=== PATIENT | female | born 1970 | race Caucasian/White ===

== ENCOUNTER 2016-12-26 10:11 | Inpatient (IN) | payer OTHER ==
[~2016-12-26] VITALS: Ht 162.6 cm; Wt 104.3 kg
[~2016-12-26 10:11] MED LIST: DOXYCYCLINE HY100 M2 PO; IBUPROFEN800 M1 PO; PERCOCET 5-3251 EACH PO
--- NOTE | 2016-12-26 10:52 | ED GI/GU/ABDOMINAL COMPLAINT ---
History of Present Illness General Chief Complaint: Abdominal Pain/Flank Pain Stated Complaint: ABD PAIN, REDNESS AND SWELLING Source: patient, family Exam Limitations: no limitations Vital Signs & Intake/Output Vital Signs & Intake/Output Vital Signs Date Time Temp Pulse Resp B/P B/P Pulse O2 O2 Flow FiO2 Mean Ox Delivery Rate 12/27 1131 Room Air 12/27 1130 96 Room Air 12/27 0815 101 142/90 12/27 0800 Room Air 12/27 0720 98.0 101 20 142/90 97 Room Air 12/26 2314 96 Room Air 12/26 2234 98.1 107 20 158/98 96 Room Air 12/26 2157 Room Air 12/26 2048 97.2 94 18 142/93 95 Room Air Room Air 12/26 1700 99.1 99 22 138/72 100 Room Air 12/26 1500 100 22 132/70 99 12/26 1259 98.9 109 16 135/78 94 Room Air ED Intake and Output 12/27 0000 12/26 1200 Intake Total 240 Output Total Balance 240 Intake, Oral 240 Patient 230 lb 230 lb Weight Weight Reported by Patient Reported by Patient Measurement Method Allergies Coded Allergies: Boyd And Derivatives (Severe, ANAPHYLAXIS 09/17/15) ciprofloxacin (From CIPRO HC) (Severe, ANAPHYLAXIS 09/17/15) hydrocortisone (From CIPRO HC) (Severe, ANAPHYLAXIS 09/17/15) Macrolide Antibiotics (UNKNOWN 09/17/15) adhesive tape (BLISTERS 09/17/15) cefadroxil (UNKNOWN 09/17/15) clindamycin (HIVES 09/17/15) erythromycin base (UNKNOWN 09/17/15) penicillin G (UNKNOWN 09/17/15) pioglitazone (RASH 09/17/15) sitagliptin (From JANUVIA) (RASH 09/17/15) sulfamethoxazole (UNKNOWN 09/17/15) venom-honey bee (BEE VENOM (HONEY BEE)) (HIVES 09/17/15) morphine (NAUSEA 09/17/15) Reconcile Medications Doxycycline Hyclate 100 MG TABLET 1 TAB PO BID rash Fluconazole (Diflucan) 150 MG TABLET 1 TAB PO ONCE yeast infection Glipizide (Glipizide ER) 5 MG TAB.ER.24 2 TAB PO QPM DIABETES (Reported) Hydrocortisone 1 % CREAM..G. 1 MARIANA TOP BID rash apply to affected area(s) Lisinopril (Prinivil) 5 MG TABLET 1 TAB PO DAILY HEART (Reported) Metformin HCl (Metformin HCl ER) 500 MG TAB.ER.24H 2 TAB PO BID DIABETES ( Reported) Oxycodone HCl/Acetaminophen (Percocet 5-325 MG Tablet) 5 MG-325 MG TABLET 1 TAB PO BID PRN pain Saxagliptin (Onglyza) 5 MG TABLET 1 TAB PO QPM DIABETES (Reported) Simvastatin (Simvastatin*) 40 MG TABLET 1 TAB PO QPM CHOLESTEROL (Reported) Triage Note: 46 YO FEMALE TO ER C/O L SIDED OVARY PAIN AND PAIN TO CENTER OF LOWER ABD (NOTED WITH REDNESS TO ABD) PER PT, THE ABD IS PAINFUL TO TOUCH. +NAUSEA, DENIES V/D. Triage Nurses Notes Reviewed? yes LMP (ages 10-50): NOVEMBER Onset: Abrupt Duration: day(s): Timing: recent history Quality/Severity: aching, severe, throbbing Severity Numbers: 10 Location: left lower quadrant HPI: 46yo female with hx of endometreitis follow last year, left ovarian cyst, and DM presents to ED complaining of left lower abdominal pain since last night. Patient describes pain as constant, trobbing, aching, and severe at 10/ 10. She states this pain feels similar to pain she had with endometritis. She took Motrin last night without relief. She also complains of spreading rash across lower abdomen, worse since last night. She also c/o labia pruritis which feels similar to previous yeast infections with thick white vaginal discharge. Her LMP was November 14. LBM was yesterday and normal. She denies fevers, chills, dyspnea, diarrhea, constipation, dysuria. (KOMAL SAVAGE PA-C) ? N Is pt currently ? No (MELINA MALIN DO) Past History Travel History Traveled to [place] past 21 day No Medical History Any Pertinent Medical History? see below for history Neurological: NONE EENT: NONE Cardiovascular: hypertension Respiratory: asthma Gastrointestinal: NONE Hepatic: NONE Renal: NONE Musculoskeletal: NONE Psychiatric: NONE Endocrine: diabetes Surgical History Surgical History: Psychosocial History Who do you live with Spouse What is your primary language Divehi Tobacco Use: Current Daily Use Daily Tobacco Use Amount/Type: => 5 Cigarettes daily Family History Hx Contributory? No (KOMAL SAVAGE PA-C) Review of Systems Review of Systems Constitutional: Reports: no symptoms. EENTM: Reports: no symptoms. Respiratory: Reports: no symptoms. Cardiovascular: Reports: no symptoms. GI: Reports: see HPI. Genitourinary: Reports: see HPI. Musculoskeletal: Reports: no symptoms. Skin: Reports: see HPI. Neurological/Psychological: Reports: no symptoms. Hematologic/Endocrine: Reports: no symptoms. Immunologic/Allergic: Reports: no symptoms. All Other Systems: Reviewed and Negative (KOMAL SAVAGE PA-C) Physical Exam Physical Exam General Appearance: well developed/nourished, no apparent distress, alert, awake , anxious Head: atraumatic, normal appearance Eyes: Bilateral: normal appearance, EOMI. Ears, Nose, Throat, Mouth: hearing grossly normal Neck: normal inspection, supple, full range of motion Respiratory: normal breath sounds, no respiratory distress, lungs clear Cardiovascular: regular rate/rhythm, tachycardia Gastrointestinal: normal bowel sounds, soft, no organomegaly, tenderness LLQ Back: normal inspection, no cva tenderness bilaterally Extremities: normal range of motion Neurologic/Psych: awake, alert, oriented x 3 Skin: erythematous macular papular rash on lower abdomen, slight warmth to tough , blanches with pressure (KOMAL SAVAGE PA-C) Core Measures ACS in differential dx? No Severe Sepsis Present: No Septic Shock Present: No (MELINA MALIN DO) Progress Differential Diagnosis: appendicitis, bowel obstruction, diverticulitis, ovarian cyst, ovarian torsion, pancreatitis, CELLULITIS, PSORIASIS, VASCULITIS, TICK BORNE ILLNESS, NECROTIZING FASCIITIS Plan of Care: Orders Procedure Date/time Status Consistent Carbohydrate 3 12/27 B Active RT: Evaluation 12/27 1131 Active LOWER RESPIRATORY CULTURE 12/27 1000 Active CULTURE,URINE 12/27 0721 Active URINALYSIS 12/27 0721 Complete GLYCOSYLATED HGB 12/27 0600 Complete CBC WITHOUT DIFFERENTIAL 12/27 0600 Complete BASIC ELECTROLYTES PLUS BUN&CR 12/27 06 Complete THERAPIST ORDERS 12/27 UNK Complete Lab Add-on Test 12/27 UNK Active Heart Healthy Diet 12/26 D Complete Pathway - chart 12/26 2201 Active Teach/Educate 12/26 2146 Active Pain Treatment and Response 12/26 2146 Active Nutritional Intake, Monitor 12/26 2146 Active Isolation 12/26 2146 Active Patient Care Conference 06/25 2147 Active Activity/Ambulation 12/26 2147 Active LACTIC ACID 12/26 2039 Complete Patient Data 12/26 2002 Active Admit to inpatient 12/26 1950 Active FingerStick- Glucose 12/26 1739 Complete LACTIC ACID 12/26 1739 Complete CBC WITHOUT DIFFERENTIAL 12/26 1739 Complete Patient Data 12/26 1542 Active Vital Signs 12/26 1542 Active Code Status 12/26 1542 Active Intake & Output 12/26 1540 Active Add-on Test (ER Only) 12/26 1442 Active LYME TITRE 12/26 1039 Active FingerStick- Glucose 12/26 1035 Active AEROSOL CHG 12/26 UNK Complete TRC EVALUATION (GEN) 12/26 UNK Complete House Staff 12/26 UNK Active VTE Mechanical Prophylaxis 12/26 UNK Active Current Medications Sig/Keshia Start time Last Medication Dose Stop Time Status Admin Atorvastatin Calcium 20 MG 1700 12/27 1700 AC (Lipitor) Albuterol Sulfate 3 ML Q4P PRN 12/27 1130 AC 12/27 (Proventil) 1128 Enoxaparin Sodium 40 MG DAILY 12/27 1000 AC (Lovenox) Lisinopril 5 MG DAILY 12/27 1000 AC 12/27 (Prinivil) 0815 Insulin Aspart 0 TIDAC 12/27 0800 AC 12/27 (NovoLOG) 0817 Cefazolin Sodium 1,000 MG IQ8 12/27 0000 AC 12/27 (Kefzol-Ancef Inj) 0816 Guaifenesin 600 MG Q12 12/26 2231 AC 12/27 (Mucinex) 0814 Diphenhydramine HCl 50 MG Q6 PRN 12/26 2230 AC 12/26 (Benadryl) 2243 Doxycycline Hyclate 100 MG ONCE ONE 12/26 2215 CAN (Vibramycin) 12/26 2320 Sodium Chloride 100 ML (Normal Saline 0.9%) Sodium Chloride 1,000 ML Q20H 12/26 2215 AC 12/26 (Normal Saline 0.9%) 12/27 1814 2242 Insulin Detemir 10 UNITS BID 12/26 2201 AC 12/27 (Levemir) 0816 Acetaminophen 650 MG Q6P PRN 12/26 2200 AC (Tylenol) Acetaminophen 1,000 MG Q6P PRN 12/26 2200 AC 12/27 (Ofirmev) 0925 Ketorolac 15 MG Q6P PRN 12/26 2200 AC 12/27 Tromethamine 0815 (Toradol) Laboratory Tests 12/27/16 1000: Urine Color YEL, Urine Clarity CLEAR, Urine pH 6.0, Ur Specific [place] 1.020, Urine Protein NEG, Urine Ketones 40 H, Urine Nitrite NEG, Urine Bilirubin NEG, Urine Urobilinogen 0.2, Ur Leukocyte Esterase NEG, Ur Microscopic EXAM NOT REQUIRED, Urine Hemoglobin NEG, Urine Glucose >=1000 H 12/27/16 0710: Anion Gap 14, Estimated GFR > 60, BUN/Creatinine Ratio 24.0, Hemoglobin A1c 10.3 H, CBC w Diff NO MAN DIFF REQ, RBC 4.80, MCV 93.9, MCH 31.7 H, RDW 13.1, MPV 10.0, Gran % 89.6 H, Lymphocytes % 7.6 L, Monocytes % 2.8, Eosinophils % 0, Basophils % 0 L, Absolute Granulocytes 10.9 H, Absolute Lymphocytes 0.9 L, Absolute Monocytes 0.3, Absolute Eosinophils 0, Absolute Basophils 0, PUBS MCHC 33.7 12/26/16 2102: Lactic Acid 0.9 12/26/16 1900: Lactic Acid 1.1, CBC w Diff NO MAN DIFF REQ, RBC 4.72, MCV 92.8, MCH 31.6 H, RDW 13.0, MPV 9.6, Gran % 92.7 H, Lymphocytes % 5.1 L, Monocytes % 2.0, Eosinophils % 0.1, Basophils % 0.1, Absolute Granulocytes 11.1 H, Absolute Lymphocytes 0.6 L, Absolute Monocytes 0.2, Absolute Eosinophils 0, Absolute Basophils 0, PUBS MCHC 34.0 Microbiology 12/27 1000 URINE ROUT: Urine Culture - RECD 12/27 1000 LOWER RESP: Respiratory Culture - COLB 12/27 1000 LOWER RESP: Gram Stain - COLB 12/26 2254 LOWER RESP: Respiratory Culture - CAN Cancelled: NUMBER OF SQUAMOUS CELLS INDICATES POOR QUALITY SPECIMEN 12/26 2254 LOWER RESP: Gram Stain - CAN Cancelled: NUMBER OF SQUAMOUS CELLS INDICATES POOR QUALITY SPECIMEN Patient given IV toradol and states improvement in her abdominal pain. Transvaginal ultrasound and CT abdomen/pelvis both show hemorrhagic cyst in left ovary which may account for patient's abdominal pain. Upon further exam rash spreading further upward on patient's abdomen with some patches on chest now. Rash on upper abdomen and chest appears erythematous and lacy, nontender to palpation. Patient was discussed with Dr. Malin. Decision for ED obs after discussed with case management. Patient was started on IV doxy and IV solumedrol and lactic acid drawn. Surgery PA consulted patient at bedside, suspicion for necretizing faciitis is low given patient's vital signs, she is afebrile, her WBCs are WNL, however not safe to discharge patient at this time with spreading rash. Patient given oral diflucan for vaginal candidiasis. Decision to admit made by Dr. Malin and Dr. Hooker based on patient's continue symptoms despite IV doxycyline and IV solumedrol. (HUSSEIN CASAS,KOMAL) Diagnostic Imaging: Viewed by Me: CT Scan, Ultrasound. Discussed w/RAD: CT Scan, Ultrasound. Radiology Impression: PATIENT: KRYSTEN BACON PRESENT AGE: 46 PATIENT ACCOUNT NO: [id number] : 70 LOCATION: [facility] ORDERING PHYSICIAN: KOMAL SAVAGE PA-C SERVICE DATE: 12/26/16 EXAM TYPE: CAT - CT ABD & PELVIS W IV CONTRAST EXAMINATION: CT ABDOMEN AND PELVIS WITH CONTRAST CLINICAL INFORMATION: Left lower quadrant pain. COMPARISON: Previous CT scan January 2016 and pelvic ultrasound from earlier the same day. TECHNIQUE: Multidetector volumetric imaging was performed of the abdomen and pelvis before and after the IV administration of 95 mL of Optiray 320 intravenous contrast. Sagittal and coronal reformatted images were obtained on the technologist's workstation. DLP: 1005 mGy-cm. FINDINGS: LUNG BASES: The visualized lung bases are unremarkable. LIVER, GALLBLADDER, AND BILIARY TREE: The liver is normal in size, shape, and attenuation. No focal hepatic lesion or biliary ductal dilatation is present. The gallbladder has been removed. PANCREAS: Unremarkable. SPLEEN: Unremarkable. ADRENAL GLANDS: Unremarkable. KIDNEYS AND URETERS: There is a 2.7 x 3.2 cm cyst exophytic to the upper pole of the left kidney. The kidneys are otherwise unremarkable. BLADDER: Unremarkable. GASTROINTESTINAL TRACT: The small and large bowel are unremarkable. The appendix is not identified with certainty. No evidence of appendicitis is seen. ABDOMINAL WALL: There is a small umbilical hernia containing fat. LYMPH NODES: There are no enlarged lymph nodes seen. There is no ascites. VASCULAR: Unremarkable. PELVIC VISCERA: There is a heterogeneous predominantly high attenuation area in the left adnexa measuring 2 x 2.5 cm probably corresponding to hemorrhagic cyst seen on ultrasound. The uterus and adnexa are otherwise unremarkable. OSSEOUS STRUCTURES: There is spondylolysis, grade 1 spondylolisthesis and degenerative disc disease at L5-S1. IMPRESSION: There is a 2 x 2.5 cm heterogeneous high attenuation area in the left ovary likely corresponding to a complex or hemorrhagic left ovarian cyst as seen by ultrasound. No evidence of diverticulosis or diverticulitis. Left renal cyst. DICTATED BY: LEO BACON MD DATE/TIME DICTATED:12/26/161241 CENTRAL LAB TECHNICIAN:YANCI DATE/TIME TRANSCRIBED:12/26/161241 CONFIDENTIAL, DO NOT COPY WITHOUT APPROPRIATE AUTHORIZATION. <Electronically signed in Other Vendor System> SIGNED BY: LEO BACON MD 12/26/16 1432, PATIENT: KRYSTEN BACON PRESENT AGE: 46 PATIENT ACCOUNT NO: [id number] : 70 LOCATION: [facility] ORDERING PHYSICIAN: MELINA MALIN DO (TBS) SERVICE DATE: 12/26/16 EXAM TYPE: US - US-TRANSVAGINAL EXAMINATION: ULTRASOUND OF THE PELVIS CLINICAL INFORMATION: 46-year-old female presented with left lower quadrant pain. History of ovarian cyst. COMPARISON: CT of the abdomen and pelvis done on 01/16/2016. TECHNIQUE: Transabdominal and transvaginal pelvic ultrasound. FINDINGS: The uterus is normal in size and appearance, measuring 7.4 x 3.7 x 4.5 cm cm longitudinally, anteroposteriorly and transversely. The endometrial stripe thickness is normal, measuring 0.5 centimeters in thickness. The cervical length measures 2.8 cm. No focal myometrial mass is seen. The right ovary measures 3.2 x 1.5 x 2.5 cm, volume of 6.3 mL, shows a dominant solitary follicle measuring 1.5 x 1.1 x 1.4 cm. The left ovary measures 3.6 x 2.0 x 2.6 cm a volume of 9.8 mL. Superimposed well-circumscribed hypoechoic echogenicity is noted within the left ovary showing low level uniform smooth homogenous echoes measuring 2.4 x 1.4 x 2.3 cm, most consistent with hemorrhagic ovarian follicle. Vascular flow to both ovaries is well maintained. There is no free fluid present. A transvaginal study was performed in addition to the transabdominal study which did not yield an adequate examination of the uterus and ovaries due to superimposed distended gas-filled loops of bowel. IMPRESSION: 1. Sonographically unremarkable uterus and normal-appearing right ovary. 2. Likely hemorrhagic follicle involving the left ovary. The size of the left ovary appears relatively stable since 01/17/2016. 3. No free fluid. DICTATED BY: KYLIE UMANA MD DATE/ TIME DICTATED:12/26/161126 CENTRAL LAB TECHNICIAN:YANCI DATE/TIME TRANSCRIBED: 12/26/161126 CONFIDENTIAL, DO NOT COPY WITHOUT APPROPRIATE AUTHORIZATION. < Electronically signed in Other Vendor System> SIGNED BY: KYLIE UMANA MD 12/26/16 1202 (KOMAL SAVAGE PA-C) Differential Diagnosis: CELLULITIS, PSORIASIS, VASCULITIS, TICK BORNE ILLNESS, NECROTIZING FASCIITIS Initial ED EKG: none (MELINA MALIN DO) Departure Departure Disposition: STILL A PATIENT Condition: Stable Clinical Impression Primary Impression: Female pelvic pain Secondary Impressions: Hemorrhagic cyst of left ovary, Rash and nonspecific skin eruption, Yeast infection Referrals: SUSAN LISA MD (PCP/Family) Departure Forms: Customer Survey General Discharge Information Prescriptions: Current Visit Scripts Doxycycline Hyclate 1 TAB PO BID #20 TAB Hydrocortisone 1 MARIANA TOP BID #30 GM apply to affected area(s) Fluconazole (Diflucan) 1 TAB PO ONCE #2 TAB Oxycodone HCl/Acetaminophen (Percocet 5-325 MG Tablet) 1 TAB PO BID PRN pain #8 TAB (KOMAL SAVAGE PA-C) Observation Note Spoke With: MELINA MALIN DO Physician Advisor Notified: MELINA MALIN DO Place Patient In: ED Observation Rationale for Observation: My rational for observation is as follows [the patient needs IV fluids, IV insulin, IV antibiotics, reevaluation of the rash; perform serial exams, repeat CBCs and draw lactic acid level]. THE PATIENT WAS SIGNED OUT TO DR SALAZAR AT 7 PM PA/BANQUET CAPTAIN Co-Sign Statement Statement: ED Attending supervision documentation- [x] I saw and evaluated the patient. I have also reviewed all the pertinent lab results and diagnostic results. I agree with the findings and the plan of care as documented in the PA's/BANQUET CAPTAIN's documentation. [] I have reviewed the ED Record and agree with the PA's/BANQUET CAPTAIN's documentation. [] Additions or exceptions (if any) to the PAs/BANQUET CAPTAIN's note and plan are summarized below: [] (MELINA MALIN DO) Admission Note Spoke With: DRE HOOKER MD Documentation of Exam: Documentation of any treatments & extenuating circumstances including Concerns Regarding Discharge (functional status, medication knowledge or non-compliance, living conditions, etc.) that warrant an admission rather than observation: see below... pt with worsening rash, not better after steroids/abx... see below. pt merits iv abx, id and possibly derm consult. (MARIE GONZALEZ,ERIC Nolasco) Critical Care Note Critical Care Note Critical Care Time: 30-74 min (MARIE GONZALEZ,ERIC Nolasco) ED Attending Observation Initial Observation Note: I have seen and personally examined KRYSTEN BACON on 12/26/16 at 1616. I agree with the current emergency department documentation. The disposition (admission or discharge) is uncertain at this time, she needs a period of observation for the following reason(s): [The patient is being placed in observation and observed for progression of the rash and serial examinations and repeat CBC and monitoring of his temperature] The ED Nurse caring for this patient has been personally informed as to what the patient is being observed for. Observation Re-Evaluation: I have reevaluated KRYSTEN BACON on 12/26/16 at 1826. The physical findings that support the continued need to observe this patient include [the patient's rash is progressing upper abdomen. Surgical consultation was requested with Chalino Titus MD to exclude any possibility of necrotizing fasciitis. Repeat CBCs and lactic acid were drawn.]. (MELINA MALIN DO) Observation Re-Evaluation: I have reevaluated KRYSTEN BACON on 12/26/16 at 1948. The physical findings that support the continued need to observe this patient include .... Pt has a worsening rash after steroids and doxycycline, subjective fevers.... pt merits admission, id consult (given multiple drug allergies), consider derm consult. (MARIE GONZALEZ,ERIC Nolasco)
[2016-12-26 11:17] LABS: ABSOLUTE BASOPHIL COUNT 0 /CUMM (0.0-0.2); ABSOLUTE EOSINOPHIL COUNT 0.1 /CUMM (0.0-0.7); ABSOLUTE GRANULOCYTE CT 7.6 /CUMM (1.4-6.5); ABSOLUTE MONOCYTE COUNT 0.6 /CUMM (0.10-0.60); BASOPHIL % 0.3 % (0.0-2.0); EOSINOPHIL % 0.7 % (0-5); GRANULOCYTE % 81.8 % (42.2-75.2); HEMATOCRIT 43.3 % (37-47); MEAN CORPUSCULAR HGB 31.6 PG (27.0-31.0); MEAN CORPUSCULAR HGB CONC 33.9 G/DL (33.0-37.0); MEAN CORPUSCULAR VOLUME 93.3 FL (81.0-99.0); MEAN PLATELET VOLUME 9.6 FL (7.4-10.4); PLATELET COUNT 168 /CUMM (130-400); RBC DISTRIBUTION WIDTH 13.5 % (11.5-14.5); RED BLOOD CELL CT 4.65 /CUMM (4.20-5.40); WHITE BLOOD CELL COUNT 9.4 /CUMM (4.8-10.8)
[2016-12-26] MEDS ORDERED: ONGLYZA5 M1 PO (11:52)
[2016-12-26] MEDS ORDERED: METFORMIN HCL500 M4 PO (11:52)
[2016-12-26] MEDS ORDERED: SIMVASTATIN40 M1 PO (11:53)
[2016-12-26] MEDS ORDERED: GLIPIZIDE ER5 M1 PO (11:54)
[2016-12-26] MEDS ORDERED: PRINIVIL5 M1 PO (11:54)
--- NOTE | 2016-12-26 12:02 | ULTRASOUND REPORT ---
EXAMINATION: ULTRASOUND OF THE PELVIS CLINICAL INFORMATION: 46-year-old female presented with left lower quadrant pain. History of ovarian cyst. COMPARISON: CT of the abdomen and pelvis done on 01/16/2016. TECHNIQUE: Transabdominal and transvaginal pelvic ultrasound. FINDINGS: The uterus is normal in size and appearance, measuring 7.4 x 3.7 x 4.5 cm cm longitudinally, anteroposteriorly and transversely. The endometrial stripe thickness is normal, measuring 0.5 centimeters in thickness. The cervical length measures 2.8 cm. No focal myometrial mass is seen. The right ovary measures 3.2 x 1.5 x 2.5 cm, volume of 6.3 mL, shows a dominant solitary follicle measuring 1.5 x 1.1 x 1.4 cm. The left ovary measures 3.6 x 2.0 x 2.6 cm a volume of 9.8 mL. Superimposed well-circumscribed hypoechoic echogenicity is noted within the left ovary showing low level uniform smooth homogenous echoes measuring 2.4 x 1.4 x 2.3 cm, most consistent with hemorrhagic ovarian follicle. Vascular flow to both ovaries is well maintained. There is no free fluid present. A transvaginal study was performed in addition to the transabdominal study which did not yield an adequate examination of the uterus and ovaries due to superimposed distended gas-filled loops of bowel. IMPRESSION: 1. Sonographically unremarkable uterus and normal-appearing right ovary. 2. Likely hemorrhagic follicle involving the left ovary. The size of the left ovary appears relatively stable since 01/17/2016. 3. No free fluid.
--- NOTE | 2016-12-26 14:32 | CT SCAN REPORT ---
EXAMINATION: CT ABDOMEN AND PELVIS WITH CONTRAST CLINICAL INFORMATION: Left lower quadrant pain. COMPARISON: Previous CT scan January 2016 and pelvic ultrasound from earlier the same day. TECHNIQUE: Multidetector volumetric imaging was performed of the abdomen and pelvis before and after the IV administration of 95 mL of Optiray 320 intravenous contrast. Sagittal and coronal reformatted images were obtained on the technologist's workstation. DLP: 1005 mGy-cm. FINDINGS: LUNG BASES: The visualized lung bases are unremarkable. LIVER, GALLBLADDER, AND BILIARY TREE: The liver is normal in size, shape, and attenuation. No focal hepatic lesion or biliary ductal dilatation is present. The gallbladder has been removed. PANCREAS: Unremarkable. SPLEEN: Unremarkable. ADRENAL GLANDS: Unremarkable. KIDNEYS AND URETERS: There is a 2.7 x 3.2 cm cyst exophytic to the upper pole of the left kidney. The kidneys are otherwise unremarkable. BLADDER: Unremarkable. GASTROINTESTINAL TRACT: The small and large bowel are unremarkable. The appendix is not identified with certainty. No evidence of appendicitis is seen. ABDOMINAL WALL: There is a small umbilical hernia containing fat. LYMPH NODES: There are no enlarged lymph nodes seen. There is no ascites. VASCULAR: Unremarkable. PELVIC VISCERA: There is a heterogeneous predominantly high attenuation area in the left adnexa measuring 2 x 2.5 cm probably corresponding to hemorrhagic cyst seen on ultrasound. The uterus and adnexa are otherwise unremarkable. OSSEOUS STRUCTURES: There is spondylolysis, grade 1 spondylolisthesis and degenerative disc disease at L5-S1. IMPRESSION: There is a 2 x 2.5 cm heterogeneous high attenuation area in the left ovary likely corresponding to a complex or hemorrhagic left ovarian cyst as seen by ultrasound. No evidence of diverticulosis or diverticulitis. Left renal cyst.
[2016-12-26] MEDS ORDERED: DOXYCYCLINE HY100 M4 PO (15:00)
[2016-12-26] MEDS ORDERED: PERCOCET 5-3251 EACH PO (15:00)
[2016-12-26] MEDS ORDERED: DIFLUCAN150 M1 PO (15:00)
[2016-12-26] MEDS ORDERED: HYDROCORTISO453.6 G1 TOP (15:00)
[2016-12-26 19:13] LABS: ABSOLUTE BASOPHIL COUNT 0 /CUMM (0.0-0.2); ABSOLUTE EOSINOPHIL COUNT 0 /CUMM (0.0-0.7); ABSOLUTE GRANULOCYTE CT 11.1 /CUMM (1.4-6.5); ABSOLUTE LYMPH COUNT 0.6 /CUMM (1.2-3.4); ABSOLUTE MONOCYTE COUNT 0.2 /CUMM (0.10-0.60); BASOPHIL % 0.1 % (0.0-2.0); EOSINOPHIL % 0.1 % (0-5); GRANULOCYTE % 92.7 % (42.2-75.2); HEMATOCRIT 43.8 % (37-47); MEAN CORPUSCULAR HGB 31.6 PG (27.0-31.0); MEAN CORPUSCULAR VOLUME 92.8 FL (81.0-99.0); MEAN PLATELET VOLUME 9.6 FL (7.4-10.4); PLATELET COUNT 161 /CUMM (130-400); RED BLOOD CELL CT 4.72 /CUMM (4.20-5.40)
--- NOTE | 2016-12-26 20:07 | History & Physical ---
AC BUSBY 12/26/162006: General Information and HPI MD Statement: I have seen and personally examined KRYSTEN BACON and documented this H& P. The patient is a 46 year old F who presented with a patient stated chief complaint of abdominal pain and rash Source of Information: patient Exam Limitations: no limitations History of Present Illness: 46 year old woman, current everyday smoker with Pmh significant for DM, recurrent breast infections usually treated with Doxycline, history left ovarian cyst, multiple allergies, psoriasis comes to ED for evaluation for Abdominal pain and rash. Around 8pm she started experiencing non radiating LLQ abdominal pain which was 10/10 and after administration of motrin decreased to 8/10. Was associated with nausea. Also around the same time she noticed a rash on her lower abdomen which during her ER stay was noted to spread upwards to mid chest. Rash was non pruritic and associated with burning. Endorses white vaginal discharge which started today as well. Denies shortness of breath, chest pain, palpitatations, vomiting, change in diet or detergent, excessive menstrual bleeding, reports spotting in between her periods. Of note which was done in January was complicated infection of the surgical site. She is followed by Dr. De La Cruz for her current left ovarian cyst and she has had prior removal of what she states was a 9 cm ovarian cyst in the left ovary. Her only change in her medications was Onglyza which she recently re-started 3 months ago after stopping for over a year ago during her . Allergies/Medications Allergies: Coded Allergies: Schuyler And Derivatives (Severe, ANAPHYLAXIS 09/17/15) ciprofloxacin (From CIPRO HC) (Severe, ANAPHYLAXIS 09/17/15) hydrocortisone (From CIPRO HC) (Severe, ANAPHYLAXIS 09/17/15) Macrolide Antibiotics (UNKNOWN 09/17/15) adhesive tape (BLISTERS 09/17/15) cefadroxil (UNKNOWN 09/17/15) clindamycin (HIVES 09/17/15) erythromycin base (UNKNOWN 09/17/15) penicillin G (UNKNOWN 09/17/15) pioglitazone (RASH 09/17/15) sitagliptin (From JANUVIA) (RASH 09/17/15) sulfamethoxazole (UNKNOWN 09/17/15) venom-honey bee (BEE VENOM (HONEY BEE)) (HIVES 09/17/15) morphine (NAUSEA 09/17/15) Home Med list Doxycycline Hyclate 100 MG TABLET 1 TAB PO BID rash Fluconazole (Diflucan) 150 MG TABLET 1 TAB PO ONCE yeast infection Glipizide (Glipizide ER) 5 MG TAB.ER.24 2 TAB PO QPM DIABETES (Reported) Hydrocortisone 1 % CREAM..G. 1 MARIANA TOP BID rash apply to affected area(s) Lisinopril (Prinivil) 5 MG TABLET 1 TAB PO DAILY HEART (Reported) Metformin HCl (Metformin HCl ER) 500 MG TAB.ER.24H 2 TAB PO BID DIABETES ( Reported) Oxycodone HCl/Acetaminophen (Percocet 5-325 MG Tablet) 5 MG-325 MG TABLET 1 TAB PO BID PRN pain Saxagliptin (Onglyza) 5 MG TABLET 1 TAB PO QPM DIABETES (Reported) Simvastatin (Simvastatin*) 40 MG TABLET 1 TAB PO QPM CHOLESTEROL (Reported) Compliance With Home Meds: GOOD Past History Travel History Traveled to [place] past 21 day No Medical History Blood Transfusion Hx: No Neurological: NONE EENT: NONE Cardiovascular: hypertension Respiratory: asthma Gastrointestinal: NONE Hepatic: NONE Renal: NONE Musculoskeletal: NONE Psychiatric: NONE Endocrine: diabetes Cancer(s): RT BREAST LUMPECTOMY HAND GLOVE CLEANER/Reproductive: OVARIAN CYSTS Surgical History Surgical History: , CYST REMOVAL Past Family/Social History Family History Relations & Conditions if any Relation not specified for: Diabetes mellitus in father Psychosocial History Where do you live? Home Who Do You Live With? spouse Services at Home: None Smoking Status: Current Everyday Smoker ETOH Use: denies use Functional Ability ADLs Independent: dressing, eating, toileting, bathing. Ambulation: independent IADLs Independent: shopping, housework, finances, food prep, telephone, transportation , medication admin. Review of Systems Review of Systems Constitutional: Denies: see HPI, chills, diaphoresis, fever, malaise, weakness, unexplained weight loss. Cardiovascular: Denies: chest pain, edema, orthopena, palpitations, peripheral edema, syncope. Respiratory: Denies: cough, hemoptysis, orthopnea, short of breath, sputum production, stridor, wheezing. GI: Reports: abdominal pain. Denies: bloating, constipation, diarrhea, distention, bowel incontinence, melena, nausea, bloody stool, changes in stool, vomiting, steatorrhea. Genitourinary: Denies: discharge, dysuria, frequency, hematuria, hesitation, nocturia, pain, urgency. Skin: Reports: rash. Exam & Diagnostic Data Last 24 Hrs of Vital Signs/I&O Vital Signs Date Time Temp Pulse Resp B/P B/P Pulse O2 O2 Flow FiO2 Mean Ox Delivery Rate 12/26 2314 96 Room Air 12/26 2234 98.1 107 20 158/98 96 Room Air 12/26 2157 Room Air 12/26 2048 97.2 94 18 142/93 95 Room Air Room Air 12/26 1700 99.1 99 22 138/72 100 Room Air 12/26 1500 100 22 132/70 99 12/26 1259 98.9 109 16 135/78 94 Room Air 12/26 1017 99.7 110 18 153/84 97 Room Air Intake & Output 12/27 0800 12/27 0000 12/26 1600 Intake Total 240 Output Total Balance 240 Intake, Oral 240 Patient 230 lb 230 lb Weight Weight Reported by Patient Reported by Patient Measurement Method Physical Exam General Appearance Alert, Oriented X3, Cooperative, Mild Distress Skin red, blanchable maculopapular rash extending over abdomen upto chest , psoriatic lesions on b/l lower extremities Neck Supple Cardiovascular Regular Rate, Normal S1, Normal S2 Lungs Clear to Auscultation, Normal Air Movement Abdomen Normal Bowel Sounds, tenderness to mild palpation, worse in LLQ with guarding Extremities No Edema Diagnostic Data Other Results US-TRANSVAGINAL FINDINGS: The uterus is normal in size and appearance, measuring 7.4 x 3.7 x 4.5 cm cm longitudinally, anteroposteriorly and transversely. The endometrial stripe thickness is normal, measuring 0.5 centimeters in thickness. The cervical length measures 2.8 cm. No focal myometrial mass is seen. The right ovary measures 3.2 x 1.5 x 2.5 cm, volume of 6.3 mL, shows a dominant solitary follicle measuring 1.5 x 1.1 x 1.4 cm. The left ovary measures 3.6 x 2.0 x 2.6 cm a volume of 9.8 mL. Superimposed well-circumscribed hypoechoic echogenicity is noted within the left ovary showing low level uniform smooth homogenous echoes measuring 2.4 x 1.4 x 2.3 cm, most consistent with hemorrhagic ovarian follicle. Vascular flow to both ovaries is well maintained. There is no free fluid present. A transvaginal study was performed in addition to the transabdominal study which did not yield an adequate examination of the uterus and ovaries due to superimposed distended gas-filled loops of bowel. IMPRESSION: 1. Sonographically unremarkable uterus and normal-appearing right ovary. 2. Likely hemorrhagic follicle involving the left ovary. The size of the left ovary appears relatively stable since 01/17/2016. 3. No free fluid. CT ABD & PELVIS W IV CONTRAST FINDINGS: LUNG BASES: The visualized lung bases are unremarkable. LIVER, GALLBLADDER, AND BILIARY TREE: The liver is normal in size, shape, and attenuation. No focal hepatic lesion or biliary ductal dilatation is present. The gallbladder has been removed. PANCREAS: Unremarkable. SPLEEN: Unremarkable. ADRENAL GLANDS: Unremarkable. KIDNEYS AND URETERS: There is a 2.7 x 3.2 cm cyst exophytic to the upper pole of the left kidney. The kidneys are otherwise unremarkable. BLADDER: Unremarkable. GASTROINTESTINAL TRACT: The small and large bowel are unremarkable. The appendix is not identified with certainty. No evidence of appendicitis is seen. ABDOMINAL WALL: There is a small umbilical hernia containing fat. LYMPH NODES: There are no enlarged lymph nodes seen. There is no ascites. VASCULAR: Unremarkable. PELVIC VISCERA: There is a heterogeneous predominantly high attenuation area in the left adnexa measuring 2 x 2.5 cm probably corresponding to hemorrhagic cyst seen on ultrasound. The uterus and adnexa are otherwise unremarkable. OSSEOUS STRUCTURES: There is spondylolysis, grade 1 spondylolisthesis and degenerative disc disease at L5-S1. IMPRESSION: There is a 2 x 2.5 cm heterogeneous high attenuation area in the left ovary likely corresponding to a complex or hemorrhagic left ovarian cyst as seen by ultrasound. No evidence of diverticulosis or diverticulitis. Left renal cyst. Assessment/Plan Assessment: 46 year old woman, current everyday smoker with Pmh significant for DM, recurrent breast infections usually treated with Doxycline, history left ovarian cyst, multiple allergies, psoriasis comes to ED for evaluation for Abdominal pain and rash. Labs significant for mildly elevated leukcocytosis, elevated serum glucose and glycosuria. CT ABD/pelvis pertinant for 2 x 2.5cm left hemorrhagic cyst confirming finding on Transvaginal US. ED course: received one dose of Doxycline, IV solumedrol and Diflucan. As Ranked By This Provider Problem List: 1. Hemorrhagic cyst of left ovary Assessment/Plan Called and spoke to Dr. Hylton the telephone exchange operator OBG/HAND GLOVE CLEANER who reviewed Imaging. Recomended to continue conservative management and follow up with Dr. De La Cruz upon discharge. Monitor for acute abdomen. 2. Rash and nonspecific skin eruption Assessment/Plan unclear etiology at this time, clinical examination not impressive for cellulitis, improvement noted after administration of IV solumedrol. Will continue with scheduled Benadryl 50mg q6, monitor progress Dermatologic consult to be placed in AM In view of her past history recurrent infections, pt is anxious not to be on Antibiotics will continue with cefazolin pending blood cultures 3. Diabetes mellitus type 2 Assessment/Plan accuchecks, Novolog SS hold oral hypoglycemics f/up HA1c continue lisinopril and statin Diabetic diet 4. DVT prophylaxis Assessment/Plan sc lovenox 5. Full code status Core Measures/Miscellaneous Acute Coronary Syndrome ACS Diagnosis: No Cerebrovascular Accident CVA/TIA Diagnosis: No Congestive Heart Failure CHF Diagnosis: No VTE (View Protocol) VTE Risk Factors: Age > [address] [facility] d/t: No contraindications No VTE Pharm Prophylaxis d/t: No contraindications VTE Diagnosis: No VTE Type: NONE VTE Confirmed by (Test): NONE Sepsis (View Protocol) Severe Sepsis Present: No Septic Shock Septic Shock Present: No Miscellaneous Documentation Attending Case Discussed With: MELINA MALIN DO Primary Care Physician: SUSAN LISA MD Patient sees these Specialists Dr. Ruddy De La Cruz Level of Patient Care: General Medicine MAX LYNN MD 12/27/16 0317: Resident Review Statement Resident Statement: examined this patient, discussed with internet marketing specialist, agreed with internet marketing specialist, discussed with family Other Findings: 46-year-old female with past medical history of psoriasis multiple drug and seasonal allergies, diabetes, hypertension and left ovarian cyst here with complains of sudden onset of severe, left-sided lower abdominal pain and a new painful red rash on her lower abdomen x 1 day and a copious clear-colored vaginal discharge and vaginal itching that started today. She endorses low- grade fevers, chills, and sweats. She reports that since ariving in the ER, the rash rapidly spread up across abdomen up to the middle of the breasts but became a little better after she was given IV steroids. She also asked that she has had chronic sinus and congestion for the past 3 months and now has a cough productive of white and yellow sputum for the last 5 days with associated wheezing without chest pain or shortness of breath. She had a section was complicated by an infection of the surgical site. She denies a hx of endometritis. Last year and reports that a large cyst was taken out of her left ovary prior to her last , and she currently has a cyst in her left ovary that has been there throughout her for which her CARPET INSTALLATION SPECIALIST Dr. Griffiths has been monitoring it. She had no pain prior to now and she does not believe there was any blood in the cyst prior. She has had multiple breast infections in the past requiring surgical interventions as well as vaginal yeast infections in the past. She takes Onglyza which she recently re-started 3 months ago after stopping for over a year ago when she was , metformin and glipizide for her diabetes and follows up with Dr. Fox. Her blood sugars have been well controlled until yesterday when they were elevated. Transvaginal ultrasound scan: 1. Sonographically unremarkable uterus and normal-appearing right ovary. 2. Likely hemorrhagic follicle involving the left ovary. The size of the left ovary appears relatively stable since 01/17/2016. 3. No free fluid. CT abdomen pelvis with IV contrast: There is a 2 x 2.5 cm heterogeneous high attenuation area in the left ovary likely corresponding to a complex or hemorrhagic left ovarian cyst as seen by ultrasound. No evidence of diverticulosis or diverticulitis. Left renal cyst. Assessment 1. Possible Drug allergy versus cellulitis 2. Vaginal candidiasis 3. Possible Bronchitis 4. Hemorrhagic transformation of left Ovarian cyst 4. T2 DM 5. HTN Plan Admit to general medicine floor Blood cultures 2 IV cefazolin 1 g every 8hrs Sputum culture TRC nebs By mouth Benadryl 50 mg every 6 hours Hold steroids for now-patient received 125 mg of IV Solu-Medrol in the ER Dermatology consult Monitor CBCs Hold all her oral hypoglycemics for now Subcutaneous Levemir 10 mg twice a day-may titrate upwards as needed NovoLog sliding scale Fingersticks glucose 3 times a day before meals and at bedtime Consider Endo consult if blood sugar becomes difficult to control Check hemoglobin A1c Adequate pain control Full code Subcutaneous Lovenox for DVT prophylaxis DRE MONGE 12/27/16 0431: Attending MD Review Statement Attending Statement Attending MD Statement: examined this patient, discuss w/resident/PA/PATTERN RULER, agreed w/resident/PA/PATTERN RULER, discussed with family, reviewed EMR data (avail), reviewed images, amended to note Attending Assessment/Plan: CC: pain in left "ovary" PMH: DM, HLD, psoriasis, asthma, migraine, recurrent breast infection Patient came to ER complaining of pain in the left-sided ovary. Upon further conditioning she complains of pain in left lower quadrant, sharp, radiating to center of lower abdomen. She noticed pain last night, which worsened the morning of admission so she came to ER. She endorses some nausea associated with that but denies any vomiting. Then she noticed rash on lower abdomen, patient was kept in ER in observation for the day and eventually rash worsened spreading upwards beyond the umbilicus up to the sternum. Patient complains severe burning sensation over the rash, denies any itching. "I feel the cellulitis, this is not allergy". She endorses chills but no subjective or objective fevers. She also noticed white vaginal discharge referring to fungal infection. She has several pictures taken on her cell phone poor progression of the rash. Vitals: Afebrile, BP max 99.7, HR 110, RR 18, blood pressure 135/78, saturating well on room air. On examination: A O 3, cooperative, no acute distress, neck supple, JVD normal, no inguinal lymphadenopathy, mucosa moist, no focal neurological deficit, no dependent edema, so reticulocyte lesions bilateral lower extremity, maculopapular blanching rash lower abdomen spreading up to the sternum, upper part of the rash appears resolving. Mildly increased temperature, no induration. No other rashes observed, CVS: S1-S2, RRR. RS: Minimum wheezing. abdomen: Soft, mild tenderness, obese, no guarding or rigidity, tender to touch in left inguinal region, ND, bowel sounds present. Labs: WBC 12.0, neutrophils 92%, sodium 135, potassium 4.2, chloride 100, bicarbonate 27, anion gap 8, glucose 313, AST 12, lipase 220, lactate 1.1 UA unremarkable except high glucose Transvaginal and transabdominal ultrasound: 1. Sonographically unremarkable uterus and normal-appearing right ovary. 2. Likely hemorrhagic follicle involving the left ovary. The size of the left ovary appears relatively stable since 01/17/2016. 3. No free fluid. CT abdo and pelvis : There is a 2 x 2.5 cm heterogeneous high attenuation area in the left ovary likely corresponding to a complex or hemorrhagic left ovarian cyst as seen by ultrasound. No evidence of diverticulosis or diverticulitis. Left renal cyst. A and P 46 year old female with history of diabetes mellitus and psoriasis presented in ER for sharp left-sided lower abdominal p a in. Patient hemodynamically stable. She states that pain is severe, does not allow much examination, appears tender to touch but no guarding or rigidity. Transvaginal ultrasound and CT scan were obtained which showed possible hemorrhagic transformation or existing ovarian cyst. Because of her severe pain CARPET INSTALLATION SPECIALIST was called, who suggested conservative management. At the same time patient noticed rash on lower abdomen starting below umbilicus spreading upwards, rashes maculopapular, blanching. Questionable allergy less likely infection/ cellulitis. It does not appear to be purpuric. Less likely other chronic inflammations as rash is very acute in nature. Patient states that she gets recurrent cellulitis and had infection of her breast 11 times, infection of her incision. She insist on getting antibiotics. She also complains of vaginal discharge and received 1 dose of fluconazole in ER. She also received ketorolac, Tylenol, doxycycline, methylprednisolone 125 mg, normal saline in ER. Patient is admitted to general medicine, for worsening abdominal rash. We will continue cefazolin, scheduled Benadryl, dermatologic consult, follow-up blood cultures, hold all her oral hypoglycemics, continue sliding scale insulin, continue lisinopril.
[2016-12-26 22:34] VITALS: BP 158/98
--- NOTE | 2016-12-27 04:34 | Admission Certification ---
Admission Certification Certification Statement - As attending physician, I certify that at the time of - admission, based on clinical presentation, severity of - symptoms, need for further diagnostic testing and - therapeutic interventions, and risk of adverse outcomes - without in-hospital treatment, in my clinical assessment, - this patient requires an acute hospital stay for a minimum - of two nights or longer. I have also considered psychsocial - factors such as support system, advanced age, financial - issues, cognitive issues, and failed out-patient treatments, - past re-admission history, safety of patient, and lack of - compliance as applicable. Specific rationale supporting this admission is: Worsening abdominal rash
--- NOTE | 2016-12-27 07:00 | PN- Housestaff ---
See Addendum Subjective Follow-up For: Skin Eruption: dermatitis vs Cellulitis Subjective: Ms Wilde was seen and examined this morning. Resting comfortably in bed. Patient continues to endorse pain across the anterior abdominal wall. Pain is rated as 7 out of 10 in severity. Worse with touch. Patient states that she feels a little better compared to how she did yesterday. She denies any fever, chills, nausea, vomiting. Requests us to inform Dr. Griffiths of her admission. Review of Systems Constitutional: Reports: see HPI. Objective Last 24 Hrs of Vital Signs/I&O Vital Signs Date Time Temp Pulse Resp B/P B/P Pulse O2 O2 Flow FiO2 Mean Ox Delivery Rate 12/27 1131 Room Air 12/27 1130 96 Room Air 12/27 0815 101 142/90 12/27 0800 Room Air 12/27 0720 98.0 101 20 142/90 97 Room Air 12/26 2314 96 Room Air 12/26 2234 98.1 107 20 158/98 96 Room Air 12/26 2157 Room Air 12/26 2048 97.2 94 18 142/93 95 Room Air Room Air 12/26 1700 99.1 99 22 138/72 100 Room Air 12/26 1500 100 22 132/70 99 12/26 1259 98.9 109 16 135/78 94 Room Air Intake & Output 12/27 1600 12/27 0800 12/27 0000 Intake Total 640 240 Output Total 500 Balance -500 640 240 Intake, IV 400 Intake, Oral 240 240 Output, Urine 500 Patient 104.326 kg Weight Weight Reported by Patient Measurement Method Physical Exam General Appearance: Alert, Oriented X3, Cooperative, Mild Distress Cardiovascular: Normal S1, Normal S2 Lungs: Clear to Auscultation Abdomen: Diffuse Erythma across anterior abdominal wall. Tender to touch. Non weeping. Non pruritic. Non raised., No rebound tenderness, no guarding. Neurological: Normal Speech Extremities: Edema Vascular: Normal Pulses Current Medications: Current Medications Sig/Keshia Start time Last Medication Dose Route Stop Time Status Admin Acetaminophen 650 MG Q6P PRN 12/26 2199 AC PO Acetaminophen 1,000 MG Q6P PRN 12/26 2200 AC 12/27 IV 0925 Acetaminophen 650 MG ONCE ONE 12/26 1515 DC 12/26 PO 12/26 1516 1515 Acetaminophen 0 .STK-MED ONE 12/26 1513 DC PO Albuterol Sulfate 3 ML Q4P PRN 12/27 1130 AC 12/27 INH 1128 Albuterol Sulfate 3 ML ONCE ONE 12/26 2315 DC 12/26 INH 12/26 2316 2313 Atorvastatin Calcium 20 MG 1700 12/27 1700 AC PO Cefazolin Sodium 1,000 MG IQ8 12/27 0000 AC 12/27 IV 0816 Diazepam 2 MG .STK-MED ONE 12/27 0113 DC PO 12/27 0114 Diazepam 2 MG ONCE ONE 12/26 2245 DC 12/27 PO 12/26 2246 0113 Diphenhydramine HCl 50 MG .STK-MED ONE 12/26 2241 DC PO 12/26 2242 Diphenhydramine HCl 50 MG Q6 PRN 12/26 2230 AC 12/26 PO 2243 Doxycycline Hyclate 100 MG ONCE ONE 12/26 2215 CAN Sodium Chloride 100 ML IV 12/26 2320 Doxycycline Hyclate 100 MG ONCE ONE 12/26 1600 DC 12/26 Sodium Chloride 100 ML IV 12/26 1705 1631 Enoxaparin Sodium 40 MG DAILY 12/27 1000 AC SC Fluconazole 150 MG ONCE ONE 12/26 1630 DC 12/26 PO 12/26 1631 1844 Guaifenesin 600 MG Q12 12/26 2231 AC 12/27 PO 0814 Insulin Aspart 0 TIDAC 12/27 0800 AC 12/27 SC 0817 Insulin Detemir 10 UNITS BID 12/26 2201 AC 12/27 SC 0816 Insulin Human Regular 10 UNITS ONCE ONE 12/26 1600 DC 12/26 IV 12/26 1601 1631 Ketorolac 15 MG Q6P PRN 12/26 2200 AC 12/27 Tromethamine IV 0815 Ketorolac 0 .STK-MED ONE 12/26 1156 DC Tromethamine .ROUTE Lisinopril 5 MG DAILY 12/27 1000 AC 12/27 PO 0815 Methylprednisolone 0 .STK-MED ONE 12/26 1613 DC .ROUTE Methylprednisolone 125 MG ONCE ONE 12/26 1600 DC 12/26 IV 12/26 1601 1631 Sodium Chloride 1,000 ML Q20H 12/26 2215 AC 12/26 IV 12/27 1814 2242 Sodium Chloride 1,000 ML BOLUS ONE 12/26 1145 DC 12/26 IV 12/26 1244 1200 Last 24 Hrs of Lab/Rakesh Results Last 24 Hrs of Labs/Mics: Laboratory Tests 12/27/16 1000: Urine Color YEL, Urine Clarity CLEAR, Urine pH 6.0, Ur Specific [place] 1.020, Urine Protein NEG, Urine Ketones 40 H, Urine Nitrite NEG, Urine Bilirubin NEG, Urine Urobilinogen 0.2, Ur Leukocyte Esterase NEG, Ur Microscopic EXAM NOT REQUIRED, Urine Hemoglobin NEG, Urine Glucose >=1000 H 12/27/16 0710: Anion Gap 14, Estimated GFR > 60, BUN/Creatinine Ratio 24.0, Hemoglobin A1c 10.3 H, CBC w Diff NO MAN DIFF REQ, RBC 4.80, MCV 93.9, MCH 31.7 H, RDW 13.1, MPV 10.0, Gran % 89.6 H, Lymphocytes % 7.6 L, Monocytes % 2.8, Eosinophils % 0, Basophils % 0 L, Absolute Granulocytes 10.9 H, Absolute Lymphocytes 0.9 L, Absolute Monocytes 0.3, Absolute Eosinophils 0, Absolute Basophils 0, PUBS MCHC 33.7 12/26/16 2102: Lactic Acid 0.9 12/26/16 1900: Lactic Acid 1.1, CBC w Diff NO MAN DIFF REQ, RBC 4.72, MCV 92.8, MCH 31.6 H, RDW 13.0, MPV 9.6, Gran % 92.7 H, Lymphocytes % 5.1 L, Monocytes % 2.0, Eosinophils % 0.1, Basophils % 0.1, Absolute Granulocytes 11.1 H, Absolute Lymphocytes 0.6 L, Absolute Monocytes 0.2, Absolute Eosinophils 0, Absolute Basophils 0, PUBS MCHC 34.0 Microbiology 12/27 1000 URINE ROUT: Urine Culture - RECD 12/27 1000 LOWER RESP: Respiratory Culture - COLB 12/27 1000 LOWER RESP: Gram Stain - COLB 12/26 2254 LOWER RESP: Respiratory Culture - CAN Cancelled: NUMBER OF SQUAMOUS CELLS INDICATES POOR QUALITY SPECIMEN 12/26 2254 LOWER RESP: Gram Stain - CAN Cancelled: NUMBER OF SQUAMOUS CELLS INDICATES POOR QUALITY SPECIMEN Assessment/Plan Assessment: Ms Wilde is a 46 year old woman, current everyday smoker with Pmh significant for DM, recurrent breast infections usually treated with Doxycline, history left ovarian cyst, multiple allergies, psoriasis comes to ED for evaluation for Abdominal pain and rash. Labs significant for mildly elevated leukcocytosis, elevated serum glucose and glycosuria. CT ABD/pelvis pertinant for 2 x 2.5cm left hemorrhagic cyst confirming finding on Transvaginal US. ED course: received one dose of Doxycline, IV solumedrol and Diflucan. Abdominal Rash and nonspecific skin eruption Improvement noted after administration of IV solumedrol. ID consultation obtained, will follow off antibiotics. Moniro WBC in am. Will also begin the patient on Clobetasol per Dermatology recomendations. Will continue with scheduled Benadryl 50mg q6, monitor progress Follow up blood cultures. Consider Skin Biposy Hemorrhagic cyst of left ovary Per Night team Dr. Hylton the communications editor OBG/CONSULAR OFFICER who reviewed Imaging. Recomended to continue conservative management and follow up with Dr. De La Cruz upon discharge. Dr De La Cruz Informed of admission this am Monitor for acute abdomen. Diabetes mellitus type 2 Levemir was increased to 12 units BID. Sliding scale was adjusted due to elevated FGG. Consider Endocriology consultation in am if sugras remain elevated. HbA13: 10.3 Nurtition consultation in am. #History of HTN and HLD Continue lisinopril and statin #DVT prophylaxis Lovenox #Hx of tobacco use Nicotine Patch PRN Smoking Cessation Counselling. #Diet: Consisten carbohydrate 3 #Full code status Problem List: 1. Full code status 2. DVT prophylaxis 3. Yeast infection 4. Hemorrhagic cyst of left ovary 5. Female pelvic pain 6. Cellulitis of abdominal wall 7. Obesity Pain Ratin Pain Location: Anterior Abdominal Wall. Pain Goal: Remain pain free Pain Plan: Toradol Tomorrow's Labs & Rationales: CBC: Monitor for infection
[2016-12-27 07:20] VITALS: BP 142/90
[2016-12-27 09:28] LABS: ABSOLUTE BASOPHIL COUNT 0 /CUMM (0.0-0.2); ABSOLUTE EOSINOPHIL COUNT 0 /CUMM (0.0-0.7); ABSOLUTE GRANULOCYTE CT 10.9 /CUMM (1.4-6.5); ABSOLUTE LYMPH COUNT 0.9 /CUMM (1.2-3.4); ABSOLUTE MONOCYTE COUNT 0.3 /CUMM (0.10-0.60); BASOPHIL % 0 % (0.0-2.0); EOSINOPHIL % 0 % (0-5); HEMATOCRIT 45.1 % (37-47); MEAN CORPUSCULAR HGB 31.7 PG (27.0-31.0); MEAN CORPUSCULAR HGB CONC 33.7 G/DL (33.0-37.0); MEAN CORPUSCULAR VOLUME 93.9 FL (81.0-99.0); RBC DISTRIBUTION WIDTH 13.1 % (11.5-14.5); WHITE BLOOD CELL COUNT 12.2 /CUMM (4.8-10.8)
[2016-12-27 10:41] LABS: GRANULOCYTE % 89.6 % (42.2-75.2); PLATELET COUNT 180 /CUMM (130-400)
[2016-12-27 14:19] VITALS: BP 138/70
--- NOTE | 2016-12-27 14:58 | Cons- Infect Disease ---
General Information and HPI Consulting Request Date of Consult: 12/27/16 Requested By: MELINA MALIN DO Reason for Consult: Abdominal wall rash Source of Information: patient History of Present Illness: This is a 46-year-old woman with a history of diabetes, psoriasis, recurrent breast infections, status post left ovarian cystectomy 2-1/2 years prior to admission admitted on December 26 after presenting to the emergency room with several hours of left lower quadrant pain associated with nausea and the development of a burning rash over her lower abdomen with no history of any new medications or unusual contact and associated with chills but no fevers. She also noted a thick white vaginal discharge with pruritic labia. On admission she was afebrile. Laboratory data revealed a white blood cell count of 9000, glucose 313, BUN/creatinine 18 and 0.6, amylase/lipase normal, with normal liver enzymes. Urinalysis negative. A transvaginal ultrasound revealed a likely hemorrhagic follicle involving the left ovary. A CT of the abdomen and pelvis revealed a 2 x 2.5 cm heterogeneous high attenuation area in the left ovary, likely corresponding to a complex or hemorrhagic left ovarian cyst. In the emergency room she was given 1 dose each of Doxycycline, Fluconazole and Solumedrol, with near resolution of her rash, and she was then placed on Cefazolin. Her rash reappeared overnight and presently she describes it as a burning, but not pruritic, pain. She has remained afebrile since admission. Her left lower quadrant pain is much improved with pain medication. Allergies/Medications Allergies: Coded Allergies: [place] And Derivatives (Severe, ANAPHYLAXIS 09/17/15) ciprofloxacin (From CIPRO HC) (Severe, ANAPHYLAXIS 09/17/15) hydrocortisone (From CIPRO HC) (Severe, ANAPHYLAXIS 09/17/15) Macrolide Antibiotics (UNKNOWN 09/17/15) adhesive tape (BLISTERS 09/17/15) cefadroxil (UNKNOWN 09/17/15) clindamycin (HIVES 09/17/15) erythromycin base (UNKNOWN 09/17/15) penicillin G (UNKNOWN 09/17/15) pioglitazone (RASH 09/17/15) sitagliptin (From JANUVIA) (RASH 09/17/15) sulfamethoxazole (UNKNOWN 09/17/15) venom-honey bee (BEE VENOM (HONEY BEE)) (HIVES 09/17/15) morphine (NAUSEA 09/17/15) Home Med List: Doxycycline Hyclate 100 MG TABLET 1 TAB PO BID rash Fluconazole (Diflucan) 150 MG TABLET 1 TAB PO ONCE yeast infection Glipizide (Glipizide ER) 5 MG TAB.ER.24 2 TAB PO QPM DIABETES (Reported) Hydrocortisone 1 % CREAM..G. 1 MARIANA TOP BID rash apply to affected area(s) Lisinopril (Prinivil) 5 MG TABLET 1 TAB PO DAILY HEART (Reported) Metformin HCl (Metformin HCl ER) 500 MG TAB.ER.24H 2 TAB PO BID DIABETES ( Reported) Oxycodone HCl/Acetaminophen (Percocet 5-325 MG Tablet) 5 MG-325 MG TABLET 1 TAB PO BID PRN pain Saxagliptin (Onglyza) 5 MG TABLET 1 TAB PO QPM DIABETES (Reported) Simvastatin (Simvastatin*) 40 MG TABLET 1 TAB PO QPM CHOLESTEROL (Reported) Past History Travel History Traveled to [place] past 21 day No Medical History Blood Transfusion Hx: No Neurological: NONE EENT: NONE Respiratory: asthma Gastrointestinal: NONE Hepatic: NONE Renal: NONE Musculoskeletal: NONE Psychiatric: NONE Endocrine: diabetes Cancer(s): RT BREAST LUMPECTOMY PATTERN DEVELOPER/Reproductive: OVARIAN CYSTS Other Medical Hx: Psoriasis History of MRSA: No History of VRE: No History of CDIFF: No Isolation History: Standard Surgical History Surgical History: cholecystectomy, , laminectomy (L5-S1 July 2011), status post left ovarian cystectomy May 2014 L, status post I&D of the left subareolar breast abscess July 2002, status post bilateral breast reduction February 2003 Family History Relations & Conditions If Any: Relation not specified for: Diabetes mellitus in father Psychosocial History Where Do You Live? Home Who Do You Live With? spouse Services at Home: None Smoking Status: Current Everyday Smoker ETOH Use: denies use Functional Ability ADLs Independent: dressing, eating, toileting, bathing. Ambulation: independent IADLs Independent: shopping, housework, finances, food prep, telephone, transportation , medication admin. Review of Systems Review of Systems Cardiovascular: Denies: chest pain. Respiratory: Denies: cough, short of breath. GI: Reports: nausea. Genitourinary: Reports: no symptoms. All Other Systems: Reviewed and Negative Exam & Diagnostic Data Last 24 Hrs of Vital Signs/I&O Vital Signs Date Time Temp Pulse Resp B/P B/P Pulse O2 O2 Flow FiO2 Mean Ox Delivery Rate 12/27 1419 99.2 100 20 138/70 95 Room Air 12/27 1131 Room Air 12/27 1130 96 Room Air 12/27 0815 101 142/90 12/27 0800 Room Air 12/27 0720 98.0 101 20 142/90 97 Room Air 12/26 2314 96 Room Air 12/26 2234 98.1 107 20 158/98 96 Room Air 12/26 2157 Room Air 12/26 2048 97.2 94 18 142/93 95 Room Air Room Air 12/26 1700 99.1 99 22 138/72 100 Room Air 12/26 1500 100 22 132/70 99 Intake & Output 12/27 1600 12/27 0800 12/27 0000 Intake Total 640 240 Output Total 500 Balance -500 640 240 Intake, IV 400 Intake, Oral 240 240 Output, Urine 500 Patient 230 lb Weight Weight Reported by Patient Measurement Method Physical Exam Other Physical Findings: She is awake and alert in no acute distress. She is afebrile. Skin reveals scattered psoriatic lesions on her extremities, trunk and back; macular papular rash localized over her lower abdomen, with several lesions extending laterally and superiorly. HEENT exam is negative. Neck is supple with no adenopathy. Lungs are clear. Heart regular rhythm with no murmur. Abdomen is obese, soft, minimally tender on palpation over the left lower quadrant, with no guarding or rebound, with positive bowel sounds. Back no CVA tenderness. Extremities no cyanosis, clubbing or edema. Neuro is without focality. Last 24 Hours of Lab Results: Laboratory Tests 12/27 12/27 1000 0710 Chemistry Sodium (137 - 145 mmol/L) 137 Potassium (3.5 - 5.1 mmol/L) 4.1 Chloride (98 - 107 mmol/L) 102 Carbon Dioxide (22 - 30 mmol/L) 22 Anion Gap (5 - 16) 14 BUN (7 - 17 mg/dL) 12 Creatinine (0.5 - 1.0 mg/dL) 0.5 Estimated GFR (>60 ml/min) > 60 BUN/Creatinine Ratio (7 - 25 %) 24.0 Hemoglobin A1c (4.2 - 5.8 %) 10.3 H Hematology CBC w Diff NO MAN DIFF REQ WBC (4.8 - 10.8 /CUMM) 12.2 H RBC (4.20 - 5.40 /CUMM) 4.80 Hgb (12.0 - 16.0 G/DL) 15.2 Hct (37 - 47 %) 45.1 MCV (81.0 - 99.0 FL) 93.9 MCH (27.0 - 31.0 PG) 31.7 H RDW (11.5 - 14.5 %) 13.1 Plt Count (130 - 400 /CUMM) 180 MPV (7.4 - 10.4 FL) 10.0 Gran % (42.2 - 75.2 %) 89.6 H Lymphocytes % (20.5 - 51.1 %) 7.6 L Monocytes % (1.7 - 9.3 %) 2.8 Eosinophils % (0 - 5 %) 0 Basophils % (0.0 - 2.0 %) 0 L Absolute Granulocytes (1.4 - 6.5 /CUMM) 10.9 H Absolute Lymphocytes (1.2 - 3.4 /CUMM) 0.9 L Absolute Monocytes (0.10 - 0.60 /CUMM) 0.3 Absolute Eosinophils (0.0 - 0.7 /CUMM) 0 Absolute Basophils (0.0 - 0.2 /CUMM) 0 PUBS MCHC (33.0 - 37.0 G/DL) 33.7 Urines Urine Color (YEL,AMB,STR) YEL Urine Clarity (CLEAR) CLEAR Urine pH (5.0 - 8.0) 6.0 Ur Specific [place] (1.001 - 1.035) 1.020 Urine Protein (NEG,<30 MG/DL) NEG Urine Ketones (NEG) 40 H Urine Nitrite (NEG) NEG Urine Bilirubin (NEG) NEG Urine Urobilinogen (0.1 - 1.0 EU/dl) 0.2 Ur Leukocyte Esterase (NEG) NEG Ur Microscopic EXAM NOT REQUIRED Urine Hemoglobin (NEG) NEG Urine Glucose (N MG/DL) >=1000 H 12/26 1900 Chemistry Lactic Acid (0.7 - 2.1 mmol/L) 0.9 1.1 Hematology CBC w Diff NO MAN DIFF REQ WBC (4.8 - 10.8 /CUMM) 12.0 H RBC (4.20 - 5.40 /CUMM) 4.72 Hgb (12.0 - 16.0 G/DL) 14.9 Hct (37 - 47 %) 43.8 MCV (81.0 - 99.0 FL) 92.8 MCH (27.0 - 31.0 PG) 31.6 H RDW (11.5 - 14.5 %) 13.0 Plt Count (130 - 400 /CUMM) 161 MPV (7.4 - 10.4 FL) 9.6 Gran % (42.2 - 75.2 %) 92.7 H Lymphocytes % (20.5 - 51.1 %) 5.1 L Monocytes % (1.7 - 9.3 %) 2.0 Eosinophils % (0 - 5 %) 0.1 Basophils % (0.0 - 2.0 %) 0.1 Absolute Granulocytes (1.4 - 6.5 /CUMM) 11.1 H Absolute Lymphocytes (1.2 - 3.4 /CUMM) 0.6 L Absolute Monocytes (0.10 - 0.60 /CUMM) 0.2 Absolute Eosinophils (0.0 - 0.7 /CUMM) 0 Absolute Basophils (0.0 - 0.2 /CUMM) 0 PUBS MCHC (33.0 - 37.0 G/DL) 34.0 Last 24 Hours of Rakesh Results: Urine culture December 27 pending Diagnostic Data Recent Imaging Findings: Transvaginal ultrasound December 26 revealed a likely hemorrhagic follicle involving the left ovary. CT of the abdomen and pelvis December 26 revealed a 2 x 2.5 cm heterogeneous high attenuation area in the left ovary, likely corresponding to a complex or hemorrhagic left ovarian cyst. Assessment/Plan Assessment/Plan Impression: This is a 46-year-old woman with a history of diabetes, psoriasis, status post left ovarian cystectomy 2-1/2 years prior to admission admitted on December 26 with the acute onset of left lower quadrant pain, felt to represent a hemorrhagic left ovarian cyst, and with a maculopapular, burning rash over her lower abdomen with no history of any new medications or unusual contacts to this area, found to be afebrile with a normal white blood cell count and treated with various antibiotics and steroids. The etiology of this rash is unclear. It does not appear to be a cellulitis, and her normal temperatures and white blood cell count on admission would go against this. Her white blood cell count was noted to be elevated last evening and this morning but this is likely secondary to the dose of Solumedrol she received in the ER. Lyme disease is possible, but the rash is not suggestive of erythema chronicum migrans. It is not in a dermatomal pattern and there are no vesicles to suggest either herpes zoster or herpes simplex. I suspect a noninfectious etiology, possibly an unusual manifestation of psoriasis, a contact dermatitis or perhaps a vasculitis, though it appears quite localized for this. Suggestion: 1. Dermatology evaluation 2. Consider skin biopsy 3. PATTERN DEVELOPER evaluation 4. Consider topical or systemic steroids after dermatology input 5. Discontinue Cefazolin and follow off antibiotics Consult Acknowledgment - Thank you for your consult request.
[2016-12-27 22:19] VITALS: BP 108/78
[2016-12-28 06:27] VITALS: BP 100/70
--- NOTE | 2016-12-28 06:53 | PN- Housestaff ---
See Addendum Subjective Follow-up For: Skin Rash Subjective: Ms. Wilde was seen and examined this morning. Resting comfortably in bed. She appears very upset and states that she feels like not enough is being done for her. She continues to express concern about her abdominal rash feels that she's not had any follow-up from the treatment manager. She still feels like she had "hot water poured in her anterior abdominal wall." She denies any fever, chills, nausea, vomiting. She endorses occasional chills. Been tolerating by mouth intake well. Review of Systems Constitutional: Reports: see HPI. Objective Last 24 Hrs of Vital Signs/I&O Vital Signs Date Time Temp Pulse Resp B/P B/P Pulse O2 O2 Flow FiO2 Mean Ox Delivery Rate 12/28 626 97.6 79 20 100/70 94 Room Air 12/28 0051 Room Air 12/28 0000 95 Room Air 12/27 2219 97.8 86 18 108/78 95 12/27 1716 96 Room Air Room Air 12/27 1419 99.2 100 20 138/70 95 Room Air 12/27 1131 Room Air 12/27 1130 96 Room Air Intake & Output 12/28 1600 12/28 0800 12/28 0000 Intake Total 480 Output Total Balance 480 Intake, Oral 480 Physical Exam General Appearance: Alert, Oriented X3 Lymphatic: Axillary nl Cardiovascular: Regular Rate, Normal S1, Normal S2 Lungs: Clear to Auscultation Abdomen: Normal Bowel Sounds, Soft, No Tenderness, Erthema anterior abdominal wall. Tender to touch, Non Weeping. Non pruritis, Non Raised, No rebound Tenderness. No Guarding. Neurological: Normal Gait, Normal Speech, Strength at 5/5 X4 Ext Current Medications: Current Medications Sig/Keshia Start time Last Medication Dose Route Stop Time Status Admin Acetaminophen 1,000 MG .STK-MED ONE 12/27 2049 DC IV 12/27 2050 Acetaminophen 1,000 MG .STK-MED ONE 12/28 923 DC IV 12/27 924 Acetaminophen 650 MG Q6P PRN 12/26 2199 AC PO Acetaminophen 1,000 MG Q6P PRN 12/26 2200 AC 12/28 IV 0300 Albuterol Sulfate 3 ML Q4P PRN 12/27 1130 AC 12/28 INH 0050 Atorvastatin Calcium 20 MG 1700 12/27 1700 AC 12/27 PO 1735 Cefazolin Sodium 1,000 MG IQ8 12/27 0000 DC 12/27 IV 0816 Clobetasol Propionate 1 MARIANA BID 12/27 2200 AC 12/27 TOP 2053 Diazepam 2 MG ONCE ONE 12/27 2100 DC 12/27 PO 12/27 2101 2145 Diphenhydramine HCl 50 MG Q6 PRN 12/26 2230 AC 12/28 PO 0050 Enoxaparin Sodium 40 MG DAILY 12/27 1000 AC SC Guaifenesin 600 MG Q12 12/26 2231 AC 12/27 PO 205 Insulin Aspart 0 AT BEDTIME 12/27 2200 AC 12/27 SC 2149 Insulin Aspart 4 UNITS ONCE ONE 12/27 1515 DC 12/27 SC 12/27 1516 1526 Insulin Aspart 0 TIDAC 12/27 0800 AC 12/28 SC 0822 Insulin Detemir 12 UNITS BID 12/27 2200 AC 12/28 SC 0822 Insulin Detemir 10 UNITS BID 12/26 2201 DC 12/27 SC 0816 Ketorolac 15 MG Q6P PRN 12/26 2200 AC 12/27 Tromethamine IV 0815 Lisinopril 5 MG DAILY 12/27 1000 AC 12/27 PO 0815 Patient Medication 1 ED .STK-MED ONE 12/27 1356 DC Teaching ED 12/27 1357 Prednisone 40 MG ONCE ONE 12/28 0845 AC PO 12/28 0846 Ramelteon 8 MG ONCE ONE 12/27 2200 CAN PO 12/27 2201 Sodium Chloride 1,000 ML Q20H 12/26 2215 DC 12/26 IV 12/27 1814 2242 Last 24 Hrs of Lab/Rakesh Results Last 24 Hrs of Labs/Mics: Laboratory Tests 12/28/16 0723: CBC w Diff Pending, WBC Pending, RBC Pending, Hgb Pending, Hct Pending, MCV Pending, MCH Pending, RDW Pending, Plt Count Pending, MPV Pending, PUBS MCHC Pending 12/27/16 1000: Urine Color YEL, Urine Clarity CLEAR, Urine pH 6.0, Ur Specific [place] 1.020, Urine Protein NEG, Urine Ketones 40 H, Urine Nitrite NEG, Urine Bilirubin NEG, Urine Urobilinogen 0.2, Ur Leukocyte Esterase NEG, Ur Microscopic EXAM NOT REQUIRED, Urine Hemoglobin NEG, Urine Glucose >=1000 H Microbiology 12/27 1000 URINE ROUT: Urine Culture - RECD 12/27 1000 LOWER RESP: Respiratory Culture - COLB 12/27 1000 LOWER RESP: Gram Stain - COLB Assessment/Plan Assessment: Ms Wiled is a 46 year old woman, current everyday smoker with Pmh significant for DM, recurrent breast infections usually treated with Doxycline, history left ovarian cyst, multiple allergies, psoriasis comes to ED for evaluation for Abdominal pain and rash. Labs significant for mildly elevated leukcocytosis, elevated serum glucose and glycosuria. CT ABD/pelvis pertinant for 2 x 2.5cm left hemorrhagic cyst confirming finding on Transvaginal US. ED course: received one dose of Doxycline, IV solumedrol and Diflucan. Abdominal Rash and nonspecific skin eruption Improvement noted after administration of IV solumedrol. Prednisone 40 mg given this am, patient will be sent home on Prednisone taper, 30mg x 1, 20 mg x1 and 10 mg x1. ID consultation obtained, will follow off antibiotics. WBC this AM: 7.5. Will also begin the patient on Clobetasol per Dermatology recomendations. Will continue with scheduled Benadryl 50mg q6, monitor progress Follow up blood cultures, no growth after day one. To be referred to Dermatology as an outpatient. Consider Skin Biposy Hemorrhagic cyst of left ovary, #Stable Per Night team Dr. Hylton the front end loader operator OBG/OFFICE TECHNOLOGY INSTRUCTOR who reviewed Imaging. Recomended to continue conservative management and follow up with Dr. De La Cruz upon discharge. Dr De La Cruz Informed of admission this am Monitor for acute abdomen. Diabetes mellitus type 2 We Obtained a Endorinology consultation this am. Levemir was increased to 20 units BID. Sliding scale was adjusted due to elevated FGG. Consider Endocriology consultation in am if sugras remain elevated. HbA13: 10.3 FS,257, 310 Additional Home medications antiglycemics prescribed: Levemir 20 units BID and Humalog via SS for blood sugar > 150. #History of HTN and HLD Continue lisinopril and statin #DVT prophylaxis Lovenox #Hx of tobacco use Nicotine Patch PRN Smoking Cessation Counselling. #Diet: Consistent carbohydrate 3 #Full code status Problem List: 1. Benign essential hypertension 2. Diabetes mellitus type 2 3. Hyperlipidemia 4. Lumbar radiculopathy 5. Cellulitis of abdominal wall 6. Rash and nonspecific skin eruption 7. Female pelvic pain 8. Hemorrhagic cyst of left ovary 9. Yeast infection 10. DVT prophylaxis 11. Full code status 12. Obesity Pain Ratin Pain Location: Abdominal Wall Pain Goal: Remain pain free Pain Plan: Tylenol PRN Tomorrow's Labs & Rationales: No Labs
[2016-12-28 08:34] LABS: ABSOLUTE BASOPHIL COUNT 0 /CUMM (0.0-0.2); ABSOLUTE EOSINOPHIL COUNT 0.1 /CUMM (0.0-0.7); ABSOLUTE GRANULOCYTE CT 4.5 /CUMM (1.4-6.5); ABSOLUTE LYMPH COUNT 2.3 /CUMM (1.2-3.4); ABSOLUTE MONOCYTE COUNT 0.6 /CUMM (0.10-0.60); BASOPHIL % 0.3 % (0.0-2.0); PLATELET COUNT 185 /CUMM (130-400); RBC DISTRIBUTION WIDTH 13.3 % (11.5-14.5); WHITE BLOOD CELL COUNT 7.5 /CUMM (4.8-10.8)
[2016-12-28 08:44] LABS: EOSINOPHIL % 0.8 % (0-5); GRANULOCYTE % 59.9 % (42.2-75.2); MEAN CORPUSCULAR HGB 31.9 PG (27.0-31.0); MEAN CORPUSCULAR HGB CONC 34.2 G/DL (33.0-37.0); MEAN CORPUSCULAR VOLUME 93.2 FL (81.0-99.0); MEAN PLATELET VOLUME 9.6 FL (7.4-10.4); RED BLOOD CELL CT 4.18 /CUMM (4.20-5.40)
--- NOTE | 2016-12-28 08:53 | Patient Discharge Instructions ---
Discharge Instructions General Discharge Information You were seen/treated for: Skin Rash Watch for these problems: If you feel weak, experience chest pain, shortness breath, worsening cough or increased weakness please come back to the emergency department. Other signs to watch out for include: fever, chills, nausea and vomiting. Special Instructions: Please follow-up with your primary care physician within 7 days of discharge. Please inform your primary care physician of this admission to the hospital. Please follow up with the bilingual trainer, we have provided you with a referral. You have an appointment booked with Dr Johnson on 12/28/2016. Please follow up with the deburring machine operator we have provided you with a referral. Call the office on (12/30) to report blood sugars to Dr Fox. Diet Recommended Diet: Diabetic Activity Full Activity/No Limits: No Activity Self Limited: Yes (As Tolerated ) Acute Coronary Syndrome Inclusion Criteria At DC or during hospital stay patient has or had the following: ACS DIAGNOSIS No Discharge Core Measures Meds if any: Prescribed or Continued at Discharge Meds if any: NOT Prescribed or Continued at Discharge Congestive Heart Failure Inclusion Criteria At DC or during hospital stay patient has or had the following: CHF DIAGNOSIS No Discharge Core Measures Meds if any: Prescribed or Continued at Discharge Meds if any: NOT Prescribed or Continued at Discharge Cerebrovascular accident Inclusion Criteria At DC or during hospital stay patient has or had the following: CVA/TIA Diagnosis No Discharge Core Measures Meds if any: Prescribed or Continued at Discharge Meds if any: NOT Prescribed or Continued at Discharge Venous thromboembolism Inclusion Criteria VTE Diagnosis No VTE Type NONE VTE Confirmed by (Test) NONE Discharge Core Measures - Per Current guidelines, there needs to be overlap - treatment for the first 5 days of Warfarin therapy. - If discharged on Warfarin prior to 5 days of - overlap therapy, the patient will need to be - assessed for post discharge needs including - *Post discharge parental anticoagulation - *Warfarin and/or parental anticoagulation education - *Follow up date to check INR post discharge At least 5 days overlap therapy as Inpatient No Meds if any: Prescribed or Continued at Discharge Note: Overlap Therapy is Warfarin and Anticoagulant Meds if any: NOT Prescribed or Continued at Discharge
[2016-12-28 09:01] VITALS: BP 118/62
[2016-12-28] MEDS ORDERED: PREDNISONE10 M2 PO (11:38)
[2016-12-28] MEDS ORDERED: LEVEMIR FL100 UNIT/1 SC (11:38)
[2016-12-28] MEDS ORDERED: TEST STRIPS1 EACH SC (11:38)
[2016-12-28] MEDS ORDERED: NOVOLOG FL100 UNIT/1 SC (11:38)
[2016-12-28] MEDS ORDERED: ACCU-CHEK SOFT1 EACH SC (11:38)
[2016-12-28] MEDS ORDERED: HUMALOG KW100 UNIT/1 SC ×2 (12:23→12:57)
--- NOTE | 2016-12-28 13:09 | Discharge Summary ---
Visit Information Visit Dates Admission Date: 12/26/16 Discharge Date: 12/28/2016 Hospital Course Course Attending Physician: THOMPSON TALLEY MD Primary Care Physician: SLOAN GONZALEZ,[place] Hospital Course: Ms Wilde is a 46 year old woman, current everyday smoker with past medicat history significant for DM, recurrent breast infections usually treated with Doxycline, history left ovarian cyst, multiple allergies, psoriasis comes to ED for evaluation for Abdominal pain and rash. She described this rash as having hot boiling water poured on her abdomen. Labs significant for mildly elevated leukcocytosis, elevated serum glucose and glycosuria. ED course: received one dose of Doxycline, IV solumedrol and Diflucan. Patient was admitted to the Gen. medical service and below is a summary of the care she received under us. #Abdominal Rash and nonspecific skin eruption Patient did endorse that Solu-Medrol given at the ED did help her symptoms. On day 2 admission we obtained an infectious diseases consultation who recommended that we should follow the patient off antibiotics given the fact that she was afebrile and her elevated white count was likely attributed to steroids. On day 3 of admission the patient was discharged home on a prednisone taper: 30 mg 1 20 mg 1 10 mg x1. She was subsequently given a referral to follow-up with the crowd controller on the same day. While patient was admitted she was also given an ointment of clobetasol for symptomatic relief. #Diabetes mellitus type 2 On day 3 of admission we obtained an endocrinology consultation who suggested the patient should be on Levemir 20 units twice a day. Given the fact that the patient's HBA1C was 10.3 and fasting sugars remained elevated, the patient was also continued on a sliding scale. Prior to discharge the patient was continued on her home anti-glycemic as well as given a new script for Levemir 20 units twice a day. She was also given a prescription for Humalog to be used according to sliding scale when her blood sugar was above 150. The patient was instructed to call the office of Dr. Fox on 12/30/2016 report her blood sugars. #Hemorrhagic cyst of left ovary At the time of admission the admitting team was concerned that the patient may require intervention given the imaging findings. Night team made a call to OB/ BRIM STRETCHING MACHINE OPERATOR service who recommended conservative management. Dr. Griffiths who had seen patient is seen previously was informed of this admission. #History of HTN and HLD She was maintained on lisinopril and atorvastatin. #DVT prophylaxis Patient was maintained on Lovenox. Full code She is full code. Allergies: Coded Allergies: [place] And Derivatives (Severe, ANAPHYLAXIS 09/17/15) ciprofloxacin (From [facility]) (Severe, ANAPHYLAXIS 09/17/15) hydrocortisone (From [facility]) (Severe, ANAPHYLAXIS 09/17/15) Macrolide Antibiotics (UNKNOWN 09/17/15) adhesive tape (BLISTERS 09/17/15) cefadroxil (UNKNOWN 09/17/15) clindamycin (HIVES 09/17/15) erythromycin base (UNKNOWN 09/17/15) penicillin G (UNKNOWN 09/17/15) pioglitazone (RASH 09/17/15) sitagliptin (From [facility]) (RASH 09/17/15) sulfamethoxazole (UNKNOWN 09/17/15) venom-honey bee (BEE VENOM (HONEY BEE)) (HIVES 09/17/15) morphine (NAUSEA 09/17/15) Uncoded Allergies: CITRUS FRUIT (Severe, ANAPHYLAXIS 12/27/16) Pertinent Lab Results: SERVICE DATE: 12/26/16 EXAM TYPE: US - US-TRANSVAGINAL EXAMINATION: ULTRASOUND OF THE PELVIS CLINICAL INFORMATION: 46-year-old female presented with left lower quadrant pain. History of ovarian cyst. COMPARISON: CT of the abdomen and pelvis done on 01/16/2016. TECHNIQUE: Transabdominal and transvaginal pelvic ultrasound. FINDINGS: The uterus is normal in size and appearance, measuring 7.4 x 3.7 x 4.5 cm cm longitudinally, anteroposteriorly and transversely. The endometrial stripe thickness is normal, measuring 0.5 centimeters in thickness. The cervical length measures 2.8 cm. No focal myometrial mass is seen. The right ovary measures 3.2 x 1.5 x 2.5 cm, volume of 6.3 mL, shows a dominant solitary follicle measuring 1.5 x 1.1 x 1.4 cm. The left ovary measures 3.6 x 2.0 x 2.6 cm a volume of 9.8 mL. Superimposed well-circumscribed hypoechoic echogenicity is noted within the left ovary showing low level uniform smooth homogenous echoes measuring 2.4 x 1.4 x 2.3 cm, most consistent with hemorrhagic ovarian follicle. Vascular flow to both ovaries is well maintained. There is no free fluid present. A transvaginal study was performed in addition to the transabdominal study which did not yield an adequate examination of the uterus and ovaries due to superimposed distended gas-filled loops of bowel. IMPRESSION: 1. Sonographically unremarkable uterus and normal-appearing right ovary. 2. Likely hemorrhagic follicle involving the left ovary. The size of the left ovary appears relatively stable since 01/17/2016. 3. No free fluid. DICTATED BY: KYLIE UMANA MD SERVICE DATE: 12/26/16 EXAM TYPE: CAT - CT ABD & PELVIS W IV CONTRAST EXAMINATION: CT ABDOMEN AND PELVIS WITH CONTRAST CLINICAL INFORMATION: Left lower quadrant pain. COMPARISON: Previous CT scan January 2016 and pelvic ultrasound from earlier the same day. TECHNIQUE: Multidetector volumetric imaging was performed of the abdomen and pelvis before and after the IV administration of 95 mL of Optiray 320 intravenous contrast. Sagittal and coronal reformatted images were obtained on the technologist's workstation. DLP: 1005 mGy-cm. FINDINGS: LUNG BASES: The visualized lung bases are unremarkable. LIVER, GALLBLADDER, AND BILIARY TREE: The liver is normal in size, shape, and attenuation. No focal hepatic lesion or biliary ductal dilatation is present. The gallbladder has been removed. PANCREAS: Unremarkable. SPLEEN: Unremarkable. ADRENAL GLANDS: Unremarkable. KIDNEYS AND URETERS: There is a 2.7 x 3.2 cm cyst exophytic to the upper pole of the left kidney. The kidneys are otherwise unremarkable. BLADDER: Unremarkable. GASTROINTESTINAL TRACT: The small and large bowel are unremarkable. The appendix is not identified with certainty. No evidence of appendicitis is seen. ABDOMINAL WALL: There is a small umbilical hernia containing fat. LYMPH NODES: There are no enlarged lymph nodes seen. There is no ascites. VASCULAR: Unremarkable. PELVIC VISCERA: There is a heterogeneous predominantly high attenuation area in the left adnexa measuring 2 x 2.5 cm probably corresponding to hemorrhagic cyst seen on ultrasound. The uterus and adnexa are otherwise unremarkable. OSSEOUS STRUCTURES: There is spondylolysis, grade 1 spondylolisthesis and degenerative disc disease at L5-S1. IMPRESSION: There is a 2 x 2.5 cm heterogeneous high attenuation area in the left ovary likely corresponding to a complex or hemorrhagic left ovarian cyst as seen by ultrasound. No evidence of diverticulosis or diverticulitis. Left renal cyst. DICTATED BY: LEO BACON MD Disposition Summary Disposition Principal Diagnosis: Dermatitis. Additional Diagnosis: Diabetes. Elevated hemoglobin A1c. History of HLD history of hyperlipidemia Discharge Disposition: home or self care Discharge Instructions General Discharge Information Code Status: Full Code Patient's Diet: Consistent Carbohydrate Patient's Activity: As Tolerated Follow-Up Instructions/Appts: Please follow-up with your primary care physician within 7 days of discharge. Please inform your primary care physician of this admission to the hospital. Please follow up with the crowd controller, we have provided you with a referral. You have an appointment booked with Dr Johnson on 12/28/2016. Please follow up with the medical surgery nurse we have provided you with a referral. Call the office on (12/30) to report blood sugars to Dr Fox. Medications at Discharge Discharge Medications: Stop taking the following medications: Doxycycline Hyclate (Doxycycline Hyclate) 100 MG TABLET ORAL TWICE DAILY Qty = 20 Continue taking these medications: Metformin HCl (Metformin HCl ER) 500 MG TAB.ER.24H 2 Tablet ORAL TWICE DAILY Qty = 360 Comments: DID NOT RECEIVE WHILE IN HOSPITAL Saxagliptin (Onglyza) 5 MG TABLET 1 Tablet ORAL Every night Qty = 30 Comments: DID NOT RECEIVE WHILE IN HOSPITAL Simvastatin (Simvastatin*) 40 MG TABLET 1 Tablet ORAL Every night Qty = 90 Comments: Last Taken: 12/27/16 Time: 5:30 PM Glipizide (Glipizide ER) 5 MG TAB.ER.24 2 Tablet ORAL Every night Qty = 68 Comments: DID NOT RECEIVE WHILE IN HOSPITAL Lisinopril (Prinivil) 5 MG TABLET 1 Tablet ORAL DAILY Comments: Last Taken: 12/28/16 Time: 9:00 AM Hydrocortisone (Hydrocortisone) 1 % CREAM..G. 1 Application On the skin TWICE DAILY Qty = 30 Instructions: apply to affected area(s) Comments: DID NOT RECEIVE WHILE IN HOSPITAL Fluconazole (Diflucan) 150 MG TABLET 1 Tablet ORAL GIVE ONCE Qty = 2 Comments: Last Taken: 12/28/16 Time: 12:05 PM Oxycodone HCl/Acetaminophen (Percocet 5-325 MG Tablet) 5 MG-325 MG TABLET 1 Tablet ORAL TWICE DAILY as needed for pain Qty = 8 Comments: DID NOT RECEIVE WHILE IN HOSPITAL Start taking the following new medications: Insulin Lispro (Humalog Kwikpen U-100) 100 UNIT/ML INSULN.PEN 0 Inject into fatty tissue SEE INSTRUCTIONS Qty = 2 No Refills Instructions: . Comments: To be used when BS is above 150. Blood Sugar Dose < 150 mg/dl 0 Units 151-200 mg/dl 4 Units 201-250 mg/dl 6 Units 251-300 mg/dl 8 Units 300-350 mg/dl 10 Units 351-400 12 Units > 400 Call Prednisone (Prednisone) 10 MG TABLET 1 Tablet ORAL DAILY Qty = 6 No Refills Instructions: on 12/29, take 3 tablets 12/30: take 2 tab 12/31:take 1 tab Insulin Detemir (Levemir Flextouch) 100 UNIT/ML (3 ML) INSULN.PEN 20 Unit Inject into fatty tissue TWICE DAILY Qty = 2 No Refills Lancets (Accu-Chek Softclix) 1 EACH EACH 0 Inject into fatty tissue SEE INSTRUCTIONS Qty = 1 No Refills Blood Sugar Diagnostic (Test Strips) 1 EACH STRIP 0 Inject into fatty tissue SEE INSTRUCTIONS Qty = 1 No Refills Copies To: RENNY GONZALEZ,MANN; SLOAN GONZALEZ,SUSAN; CARLOS GONZALEZ,TERESA Moore; CATALINA GONZALEZ,TREY Nolasco; NORIS GONZALEZ,LETY
--- NOTE | 2016-12-28 21:57 | Cons- Endocrinology ---
General Information and HPI Consulting Request Date of Consult: 12/28/16 Requested By: medical team Reason for Consult: management of DM type 2 Source of Information: patient, old records Exam Limitations: no limitations History of Present Illness: 46 y/o female, hx of DM type 2, was admitted for burning rash over her lower abdomen. The work-up was done and she was put on prednisone 40 mg daily this morning and then she is going to be discharged today. Patient will see a towel hemmer this afternoon. As home, she was on Metformin 1000 mg twice a day, Glipizide 10 mg daily and Onglyza 5 mg daily. As per patient, her most recent HbA1c was more than 10%. In hospital, she was put on Levemir 12 units twice a day. Novolog coverage before meals and Novolog coverage at bedtime. Her FSGs were 310, 223, 259 and 241. Allergies/Medications Allergies: Coded Allergies: [place] And Derivatives (Severe, ANAPHYLAXIS 09/17/15) ciprofloxacin (From [facility] ) (Severe, ANAPHYLAXIS 09/17/15) hydrocortisone (From [facility]) (Severe, ANAPHYLAXIS 09/17/15) Macrolide Antibiotics (UNKNOWN 09/17/15) adhesive tape (BLISTERS 09/17/15) cefadroxil (UNKNOWN 09/17/15) clindamycin (HIVES 09/17/15) erythromycin base (UNKNOWN 09/17/15) penicillin G (UNKNOWN 09/17/15) pioglitazone (RASH 09/17/15) sitagliptin (From [facility]ANUVIA) (RASH 09/17/15) sulfamethoxazole (UNKNOWN 09/17/15) venom-honey bee (BEE VENOM (HONEY BEE)) (HIVES 09/17/15) morphine (NAUSEA 09/17/15) Uncoded Allergies: CITRUS FRUIT (Severe, ANAPHYLAXIS 12/27/16) Home Med List: Blood Sugar Diagnostic (Test Strips) 1 EACH STRIP 0 SC SEE ADMIN CRITERIA Diabetes Fluconazole (Diflucan) 150 MG TABLET 1 TAB PO ONCE yeast infection Glipizide (Glipizide ER) 5 MG TAB.ER.24 2 TAB PO QPM DIABETES (Reported) Hydrocortisone 1 % CREAM..G. 1 MARIANA TOP BID rash apply to affected area(s) Insulin Detemir (Levemir Flextouch) 100 UNIT/ML (3 ML) INSULN.PEN 20 UNIT SC BID Diabetes Insulin Lispro (Humalog Kwikpen U-100) 100 UNIT/ML INSULN.PEN 0 SC SEE ADMIN CRITERIA Diabetes . Lancets (Accu-Chek Softclix) 1 EACH EACH 0 SC SEE ADMIN CRITERIA Diabetes Lisinopril (Prinivil) 5 MG TABLET 1 TAB PO DAILY HEART (Reported) Metformin HCl (Metformin HCl ER) 500 MG TAB.ER.24H 2 TAB PO BID DIABETES ( Reported) Oxycodone HCl/Acetaminophen (Percocet 5-325 MG Tablet) 5 MG-325 MG TABLET 1 TAB PO BID PRN pain Prednisone 10 MG TABLET 1 TAB PO DAILY Rash on 12/29, take 3 tablets 12/30: take 2 tab 12/31:take 1 tab Saxagliptin (Onglyza) 5 MG TABLET 1 TAB PO QPM DIABETES (Reported) Simvastatin (Simvastatin*) 40 MG TABLET 1 TAB PO QPM CHOLESTEROL (Reported) Review of Systems Review of Systems Constitutional: Reports: see HPI. Cardiovascular: Denies: chest pain. Respiratory: Denies: short of breath. GI: Reports: see HPI (abdominal wall burning pain). Neurological/Psychological: Denies: no symptoms. Hematologic/Endocrine: Reports: no symptoms. Past History Travel History Traveled to [place] past 21 day No Medical History Blood Transfusion Hx: No Neurological: NONE EENT: NONE Respiratory: asthma Gastrointestinal: NONE Hepatic: NONE Renal: NONE Musculoskeletal: NONE Psychiatric: NONE Endocrine: diabetes Cancer(s): RT BREAST LUMPECTOMY ASSISTED SALES REPRESENTATIVE/Reproductive: OVARIAN CYSTS Other Medical Hx: Psoriasis Surgical History Surgical History: cholecystectomy, , laminectomy (L5-S1 July 2011), status post left ovarian cystectomy May 2014 L status post I&D of the left subareolar breast abscess July 2002 status post bilateral breast reduction February 2003 Family History Relations & Conditions If Any: Relation not specified for: Diabetes mellitus in father Psychosocial History Where Do You Live? Home Who Do You Live With? spouse Services at Home: None Smoking Status: Current Everyday Smoker ETOH Use: denies use Functional Ability ADLs Independent: dressing, eating, toileting, bathing. Ambulation: independent IADLs Independent: shopping, housework, finances, food prep, telephone, transportation , medication admin. Exam & Diagnostic Data Last 24 Hrs of Vital Signs/I&O Vital Signs Date Time Temp Pulse Resp B/P B/P Pulse O2 O2 Flow FiO2 Mean Ox Delivery Rate 12/28 1134 95 Room Air 12/28 0901 90 118/62 12/28 0800 Room Air 12/28 0627 97.6 79 20 100/70 94 Room Air 12/28 0051 Room Air 12/28 0000 95 Room Air Intake & Output 12/28 1600 12/28 0800 12/28 0000 Intake Total 600 170 480 Output Total Balance 600 170 480 Intake, IV 120 Intake, Oral 600 50 480 Number 0 Bowel Movements Physical Exam General Appearance: no apparent distress Respiratory: lungs clear Cardiovascular: regular rate/rhythm Gastrointestinal: non-tender Skin: rash (over abdominal wall) Labs/Rakesh Results: Laboratory Tests 12/28 722 Hematology CBC w Diff NO MAN DIFF REQ WBC (4.8 - 10.8 /CUMM) 7.5 RBC (4.20 - 5.40 /CUMM) 4.18 L Hgb (12.0 - 16.0 G/DL) 13.3 Hct (37 - 47 %) 39.0 MCV (81.0 - 99.0 FL) 93.2 MCH (27.0 - 31.0 PG) 31.9 H RDW (11.5 - 14.5 %) 13.3 Plt Count (130 - 400 /CUMM) 185 MPV (7.4 - 10.4 FL) 9.6 Gran % (42.2 - 75.2 %) 59.9 Lymphocytes % (20.5 - 51.1 %) 30.9 Monocytes % (1.7 - 9.3 %) 8.1 Eosinophils % (0 - 5 %) 0.8 Basophils % (0.0 - 2.0 %) 0.3 Absolute Granulocytes (1.4 - 6.5 /CUMM) 4.5 Absolute Lymphocytes (1.2 - 3.4 /CUMM) 2.3 Absolute Monocytes (0.10 - 0.60 /CUMM) 0.6 Absolute Eosinophils (0.0 - 0.7 /CUMM) 0.1 Absolute Basophils (0.0 - 0.2 /CUMM) 0 PUBS MCHC (33.0 - 37.0 G/DL) 34.2 Assessment/Plan Assessment/Plan 46 y/o female, hx of DM type 2, was admitted for burning rash over her lower abdomen. The work-up was done and she was put on prednisone 40 mg daily this morning and then she is going to be discharged today. Patient will see a towel hemmer this afternoon. In hospital, Levemir was increased to 20 units twice a day; Novolog coverage was adjusted ( FSG 80-150, 6 units; 151-200, 9 units; 201-250, 12 units; 251-300, 14 units, etc). when she is medically stable for discharge, the discharge plan for DM: -- Levemir 20 units twice a day; -- Metformin 1000 mg twice a day, Glipizide 10 mg daily and Onglyza 5 mg daily; --Novolog coverage before meals when her FSG is more than 150 ( FSG 150-200, 4 units; 201-250, 6 units; 251-300, 8 units; 301-350, 10 units; 351-400, 12 units; > 400, 14 units) -- monitor FSGs x 4 times a day -- f/u in office after discharge. Consult Acknowledgment - Thank you for your consult request.
== END 2016-12-28 13:49 | DRG 607 ==
LOC: ERH 10:11 → ERHI 15:42 → 2NA 15:42 → EDBEDREQ 20:17 → EDBEDREQTM 20:17 → ENRESERV 20:25 → ERHI 20:33 → ENTRNSPT 20:55 → EDTRNSPTSTS 20:56 → 2NA 21:01 → CMPTRNSPT 21:12 → 2NA 12-28 08:49 → ENPENDDIS 12-28 12:45 → 2NA 12-28 13:49
PROVIDERS: Physician Assistant; Student in an Organized Health Care Education/Training Program; ADMIT Internal Medicine
DX: R21 Rash and other nonspecific skin eruption (principal); I10 Essential (primary) hypertension; B37.3 Candidiasis of vulva and vagina; E11.9 Type 2 diabetes mellitus without complications; E78.5 Hyperlipidemia, unspecified; F17.200 Nicotine dependence, unspecified, uncomplicated; J45.909 Unspecified asthma, uncomplicated; N83.202 Unspecified ovarian cyst, left side; L40.9 Psoriasis, unspecified; E66.9 Obesity, unspecified; Z68.39 Body mass index [BMI] 39.0-39.9, adult; M54.16 Radiculopathy, lumbar region; Z79.4 Long term (current) use of insulin
CPT/HCPCS: 2NASP; 86618; 36415; 74177; 81003; 81025; 82436; 87070; 87086; 96361; 96374; J0131; J0690; J1650; J1815; J1885; J2930; J3490

== ENCOUNTER 2017-11-08 11:28 | Emergency (ER) | payer OTHER ==
[~2017-11-08 11:28] MED LIST changes: +ACCU-CHEK SOFT1 EACH SC; +DIFLUCAN150 M1 PO; +DOXYCYCLINE HY100 M4 PO; +GLIPIZIDE ER5 M1 PO; +HUMALOG KW100 UNIT/1 SC; +HYDROCORTISO453.6 G1 TOP; +LEVEMIR FL100 UNIT/1 SC; +METFORMIN HCL500 M4 PO; +NOVOLOG FL100 UNIT/1 SC; +ONGLYZA5 M1 PO; +PREDNISONE10 M2 PO; +PRINIVIL5 M1 PO; +SIMVASTATIN40 M1 PO; +TEST STRIPS1 EACH SC
[2017-11-08 11:35] VITALS: BP 130/79
--- NOTE | 2017-11-08 12:59 | ULTRASOUND REPORT ---
EXAMINATION: US TRIPLEX LOWER EXTREMITY, LEFT CLINICAL INFORMATION: Left lower extremity pain and swelling. COMPARISON: Left lower extremity ultrasound examinations dated 01/08/2016. TECHNIQUE: Color-flow triplex imaging with spectral analysis and compression Doppler were performed on the left lower extremity. FINDINGS: Respiratory variation, normal compression and augmented flow are noted throughout the lower extremity. The visualized common femoral vein, proximal greater saphenous vein, femoral vein, profunda femoral vein, popliteal vein and midcalf peroneal and posterior tibial venous segments show no evidence of deep venous thrombosis. There is a 6.5 x 0.9 x 2.4 cm left popliteal fossa Epna's cyst. IMPRESSION: 1. No ultrasound evidence of deep venous thrombosis involving the lower extremity. 2. A left popliteal fossa Pena's cyst is seen.
--- NOTE | 2017-11-08 13:49 | RADIOLOGY REPORT ---
EXAMINATION: XR KNEE, LEFT CLINICAL INFORMATION: Fall. Pain. Difficulty bending. History of left knee replacement. COMPARISON: None TECHNIQUE: Four views of the left knee. FINDINGS: The patient is status post total left knee replacement with no evidence of hardware failure or port gamble bone fracture seen. Evaluation for knee joint effusion is limited due to obliquity of the film, but no significant effusion is appreciated. Small calcifications are seen along the lateral margin of the tibia and in the knee joint. IMPRESSION: 1. Status post total left knee arthroplasty. 2. No evidence of hardware failure or port gamble bone fracture. 3. There may be small loose bodies within the joint space.
--- NOTE | 2017-11-08 14:03 | ED UPPER/LOWER EXTREMITY COMPL ---
History of Present Illness General Chief Complaint: Lower Extremity Problems Stated Complaint: LFT LEG AND KNEE PAIN Source: patient Exam Limitations: no limitations Vital Signs & Intake/Output Vital Signs & Intake/Output Vital Signs Date Time Temp Pulse Resp B/P B/P Pulse O2 O2 Flow FiO2 Mean Ox Delivery Rate 11/08 1135 97.3 102 18 130/79 97 Allergies Coded Allergies: [place]icking And Derivatives (Severe, ANAPHYLAXIS 09/17/15) ciprofloxacin (From CIPRO HC) (Severe, ANAPHYLAXIS 09/17/15) hydrocortisone (From CIPRO HC) (Severe, ANAPHYLAXIS 09/17/15) Macrolide Antibiotics (UNKNOWN 09/17/15) adhesive tape (BLISTERS 09/17/15) cefadroxil (UNKNOWN 09/17/15) clindamycin (HIVES 09/17/15) erythromycin base (UNKNOWN 09/17/15) penicillin G (UNKNOWN 09/17/15) pioglitazone (RASH 09/17/15) saxagliptin (From ONGLYZA) (RASH-FLESH EATING 11/08/17) sitagliptin (From JANUVIA) (RASH 09/17/15) sulfamethoxazole (UNKNOWN 09/17/15) venom-honey bee (BEE VENOM (HONEY BEE)) (HIVES 09/17/15) morphine (NAUSEA 09/17/15) Uncoded Allergies: CITRUS FRUIT (Severe, ANAPHYLAXIS 12/27/16) Reconcile Medications Blood Sugar Diagnostic (Test Strips) 1 EACH STRIP 0 SC SEE ADMIN CRITERIA Diabetes Fluconazole (Diflucan) 150 MG TABLET 1 TAB PO ONCE yeast infection Glipizide (Glipizide ER) 5 MG TAB.ER.24 2 TAB PO QPM DIABETES (Reported) Hydrocortisone 1 % CREAM..G. 1 MARIANA TOP BID rash apply to affected area(s) Insulin Detemir (Levemir Flextouch) 100 UNIT/ML (3 ML) INSULN.PEN 20 UNIT SC BID Diabetes Insulin Lispro (Humalog Kwikpen U-100) 100 UNIT/ML INSULN.PEN 0 SC SEE ADMIN CRITERIA Diabetes . Lancets (Accu-Chek Softclix) 1 EACH EACH 0 SC SEE ADMIN CRITERIA Diabetes Lisinopril (Prinivil) 5 MG TABLET 1 TAB PO DAILY HEART (Reported) Metformin HCl (Metformin HCl ER) 500 MG TAB.ER.24H 2 TAB PO BID DIABETES ( Reported) Oxycodone HCl/Acetaminophen (Percocet 5-325 MG Tablet) 5 MG-325 MG TABLET 1 TAB PO BID PRN pain Prednisone 10 MG TABLET 1 TAB PO DAILY Rash on 12/29, take 3 tablets 12/30: take 2 tab 12/31:take 1 tab Saxagliptin (Onglyza) 5 MG TABLET 1 TAB PO QPM DIABETES (Reported) Simvastatin (Simvastatin*) 40 MG TABLET 1 TAB PO QPM CHOLESTEROL (Reported) Triage Note: PER PT FELL IN SHOWER 5 DAYS AGO, PAIN TO L KNEE (KNEE REPLACEMENT 2013) AIN AND MINOR SWELLING TODAY L CALF, POSTERIOR KNEE AND THIGH SWOLLEN AND DISCOLORED. Triage Nurses Notes Reviewed? yes Onset: Abrupt Duration: day(s): (5), constant, continues in ED Timing: recent history Severity: moderate, severe Pain/Injury Location: Left: Knee. No Modifying Factors: none HPI: 47-year-old female comes into the emergency room for further evaluation of left knee pain. Patient reports that she was in the shower 5 days ago and fell and hit her knee on the faucet. She reports that she had a prior knee replacement 4 years ago with no complications. She reports that she was having some pain to the area initially but over last 24 hours she had swelling behind her knee and swelling down into her calf. She denies any redness. Comes in for further evaluation. (Franco Valdez) Past History Travel History Traveled to [place] past 21 day No Medical History Any Pertinent Medical History? see below for history Neurological: NONE EENT: NONE Respiratory: asthma Gastrointestinal: NONE Hepatic: NONE Renal: NONE Musculoskeletal: NONE Psychiatric: NONE Endocrine: diabetes Cancer(s): RT BREAST LUMPECTOMY FIELD MACHINIST/Reproductive: OVARIAN CYSTS Other Medical Hx: Psoriasis History of MRSA: No History of VRE: No History of CDIFF: No Surgical History Surgical History: cholecystectomy, , laminectomy (L5-S1 July 2011), status post left ovarian cystectomy May 2014 L status post I&D of the left subareolar breast abscess July 2002 status post bilateral breast reduction February 2003 Psychosocial History Who do you live with Daughter Services at Home None What is your primary language French Tobacco Use: Current Daily Use Daily Tobacco Use Amount/Type: => 5 Cigarettes daily Family History Family History, If Any: Relation not specified for: Diabetes mellitus in father Hx Contributory? No (Franco Valdez) Review of Systems Review of Systems Constitutional: Reports: no symptoms. EENTM: Reports: no symptoms. Respiratory: Reports: no symptoms. Cardiovascular: Reports: no symptoms. Gastrointestinal/Abdominal: Reports: no symptoms. Genitourinary: Reports: no symptoms. Musculoskeletal: Reports: see HPI. Skin: Reports: no symptoms. Neurological/Psychological: Reports: no symptoms. Hematologic/Endocrine: Reports: no symptoms. Immunological: Reports: no symptoms. All Other Systems: Reviewed and Negative (Franco Valdez) Physical Exam Physical Exam General Appearance: well developed/nourished, mild distress Head: atraumatic Eyes: Bilateral: normal appearance. Ears, Nose, Throat: normal ENT inspection, hearing grossly normal Neck: normal inspection Cardiovascular/Respiratory: no respiratory distress Back: normal inspection Knee Left: limited range of motion, Tenderness over popliteal fossa, no redness, no warmth, full range of motion of knee Neurologic/Tendon: normal sensation, normal motor functions, normal tendon functions, responds to pain, no evidence tendon injury, no pulse deficit Skin: intact, normal color, warm/dry (Franco Valdez) Progress Differential Diagnosis: contusion, dislocation, DVT, fracture, sprain Plan of Care: 11/08/2017 2:56:37 PM Patient clinically looks well. Follow-up with orthopedic doctor. No clinical evidence of septic joint. Bakers cyst is likely source of patient's pain and swelling. Understands and agrees with plan of care. Ice. Compression. Elevation. Diagnostic Imaging: Viewed by Me: Radiology Read, Ultrasound. Discussed w/RAD: Radiology Read, Ultrasound. Radiology Impression: PATIENT: KRYSTEN BACON PRESENT AGE: 47 PATIENT ACCOUNT NO: [id number] : 70 LOCATION: [facility] ORDERING PHYSICIAN: Franco VÁSQUEZ SERVICE DATE: 11/08/17 EXAM TYPE : RAD - XRY-KNEE COMPLETE LEFT EXAMINATION: XR KNEE, LEFT CLINICAL INFORMATION: Fall. Pain. Difficulty bending. History of left knee replacement. COMPARISON: None TECHNIQUE: Four views of the left knee. FINDINGS: The patient is status post total left knee replacement with no evidence of hardware failure or [place] bone fracture seen. Evaluation for knee joint effusion is limited due to obliquity of the film, but no significant effusion is appreciated. Small calcifications are seen along the lateral margin of the tibia and in the knee joint. IMPRESSION: 1. Status post total left knee arthroplasty. 2. No evidence of hardware failure or [place] bone fracture. 3. There may be small loose bodies within the joint space. DICTATED BY: Michelle De La Rosa MD DATE/TIME DICTATED:02/18 PHOTOGRAPHER SCIENTIFIC:YANCI DATE/TIME TRANSCRIBED:11/08/171341 CONFIDENTIAL, DO NOT COPY WITHOUT APPROPRIATE AUTHORIZATION. <Electronically signed in Other Vendor System> SIGNED BY: Michelle De La Rosa MD 11/08/171348 , PATIENT: KRYSTEN BACON PRESENT AGE: 47 PATIENT ACCOUNT NO: [id number] : 70 LOCATION: [facility] ORDERING PHYSICIAN: Compa Hoff DO SERVICE DATE: 11/08/17 EXAM TYPE: US - US- UNILATERAL VENOUS DOPPLER EXAMINATION: US TRIPLEX LOWER EXTREMITY, LEFT CLINICAL INFORMATION: Left lower extremity pain and swelling. COMPARISON: Left lower extremity ultrasound examinations dated 01/08/2016. TECHNIQUE: Color-flow triplex imaging with spectral analysis and compression Doppler were performed on the left lower extremity. FINDINGS: Respiratory variation, normal compression and augmented flow are noted throughout the lower extremity. The visualized common femoral vein, proximal greater saphenous vein, femoral vein, profunda femoral vein, popliteal vein and midcalf peroneal and posterior tibial venous segments show no evidence of deep venous thrombosis. There is a 6.5 x 0.9 x 2.4 cm left popliteal fossa Pena's cyst. IMPRESSION: 1. No ultrasound evidence of deep venous thrombosis involving the lower extremity. 2. A left popliteal fossa Pena's cyst is seen. DICTATED BY: Mendoza Mansfield MD DATE/TIME DICTATED:11/08/171252 PHOTOGRAPHER SCIENTIFIC:YANCI DATE/TIME TRANSCRIBED:11/08/171252 CONFIDENTIAL, DO NOT COPY WITHOUT APPROPRIATE AUTHORIZATION. <Electronically signed in Other Vendor System> SIGNED BY: Mendoza Mansfield MD 11/08/172 (Franco Valdez) Departure Departure Disposition: HOME OR SELF CARE Condition: Stable Clinical Impression Primary Impression: Pena's cyst of knee Referrals: Brenda Garcia APRN (PCP/Family) Additional Instructions: Follow-up with your orthopedic surgeon. Ice. Rest. Compression. Ibuprofen. Return if any other concerns worsening symptoms. Please go over all results of today's visit with your primary care doctor. Contact your primary care doctor to let them know you were here in the emergency room. There may be nonspecific findings which may not be related to your visit today here in the emergency room but may require further evaluation and chronic monitoring by your primary care doctor. If you had a laceration today the chance of foreign body always remains. You should follow-up with your primary care doctor for recheck in 3-5 days for a wound check. If you had an x-ray done there is a chance that a fracture could have been missed on initial read and you should follow-up with your primary care doctor for repeat x-rays if symptoms persist. If your blood pressure was elevated here in the emergency room please have rechecked by [facility] primary care doctor within the next 48. If you were prescribed a narcotic here in the emergency room or any type of controlled substances you're not allowed to drive while taking this medication or operate any type of heavy machinery. Narcotics can make you feel lightheaded dizziness nausea and can cause constipation. You may need to continuous pickling line pickler helper a stool softener. Thank you for choosing [facility] emergency room. Please return to the emergency room immediately if you have any other concerns worsening of symptoms. Departure Forms: Customer Survey General Discharge Information (Franco Valdez) PA/PERSONAL VEHICLE ADVISOR Co-Sign Statement Statement: ED Attending supervision documentation- [] I saw and evaluated the patient. I have also reviewed all the pertinent lab results and diagnostic results. I agree with the findings and the plan of care as documented in the PA's/PERSONAL VEHICLE ADVISOR's documentation. [X] I have reviewed the ED Record and agree with the PA's/PERSONAL VEHICLE ADVISOR's documentation. [] Additions or exceptions (if any) to the PAs/PERSONAL VEHICLE ADVISOR's note and plan are summarized below: [] (Compa oHff DO
== END 2017-11-08 14:12 ==
LOC: ERH 11:28
DX: M71.22 Synovial cyst of popliteal space [Baker], left knee (principal)
CPT/HCPCS: 73562-LT